=== PATIENT | male | born 1970 | race Caucasian/White ===

== ENCOUNTER 2020-02-21 18:32 | Observation (INO) | payer OTHER, SELFPAY ==
--- NOTE | ~2020-02-21 | CT_ITS ---
EXAMINATION: CT abdomen pelvis wo con DATE: 02/21/2020 20:33 INDICATION: Abdominal pain TECHNIQUE: Computed tomography (CT) of the abdomen and pelvis was performed without intravenous contr ast. The dose-length product (DLP) was 1061.72 mGy-cm. Automated exposure control and iterative recon struction technique were employed. COMPARISON: 06/16/2019 FINDINGS: Minimal dependent atelectasis is present in the lung bases. The heart size is normal. Calci fied coronary artery atherosclerosis is noted. There is bilateral gynecomastia, asymmetric on the lef t. The gallbladder is surgically absent. The liver, spleen, pancreas, and right adrenal gland are nor mal. There is a stable 3.8 cm mass of the left adrenal gland, previously evaluated and most consisten t with an adenoma. There is a 5 mm nonobstructing stone of the left kidney. No pathologically enlarge d abdominal or pelvic lymph nodes are identified. There is calcified atherosclerosis of the aorta and many of the other arteries. There is no free intraperitoneal gas or evidence of bowel obstruction. T here is moderate lumbar spondylosis. IMPRESSION: 1. No CT correlate for the patient's symptoms. Reviewed, dictated and finalized at location A.
--- NOTE | ~2020-02-21 | XR_ITS ---
EXAMINATION: XR chest 2V DATE: 02/23/2020 08:24 INDICATION: Pleuritic chest pain. Elevated d-dimer. TECHNIQUE: frontal and lateral views of the chest were obtained. COMPARISON: Chest radiograph dated 06/16/2019 FINDINGS: The lungs remain clear with no focal airspace opacities, pulmonary edema, pleural effusion or pneumot horax. The cardiomediastinal silhouette is normal. There are bridging osteophytes at multiple levels in the spine, consistent with diffuse idiopathic skeletal hyperostosis (DISH). IMPRESSION: 1. No acute cardiopulmonary disease. Reviewed, dictated and finalized at location A.
--- NOTE | ~2020-02-21 | NM_ITS ---
EXAMINATION: NM pulmonary perfusion EXAM DATE: 02/23/2020 13:48 INDICATION: Elevated d-dimer and pleuritic chest pain. TECHNIQUE: A perfusion lung scan was performed following injected with 5.5 mCi technetium 99m MAA and reimaged. Correlation is made to chest x-ray same date. FINDINGS: Minimally heterogeneous perfusion without segmental defects. Ventilation scan was not perf ormed. IMPRESSION: Low probability pulmonary embolism. Reviewed, dictated and finalized at location B.
[2020-02-21 18:39] VITALS: BP 96/63; PULSE 116; RESP 16; TEMP 36.8; O2SAT 100
--- NOTE | 2020-02-21 19:11 | ED.NAVMDI ---
HPI - Nausea/Vomiting/Diarrhea General Chief complaint: Nausea/Vomiting/Diarrhea Stated complaint: nausea/vomiting Time Seen by Provider: 02/21/20 18:57 Source: RN notes reviewed History of Present Illness HPI Narrative: She presents emergency department from [facility] via EMS for nausea vomiting. Patient states that symptoms began yesterday. States has had numerous episodes of emesis. He states associated diffuse abdominal pain described as cramping. Patient denies any fevers or chills chest pain shortness of breath cough or any other symptoms. States he is taken no previous medication for the symptoms Related Data Allergies Allergy/AdvReac Type Severity Reaction Status Date / Time ketorolac Allergy Intermediate red and Verified 02/21/20 18:41 itches Contrast Media Allergy Unknown Unknown Uncoded 02/21/20 18:41 Review of Systems Review of Systems: Narrative: Gen.: Denies fevers or chills ENT: Denies congestion Respiratory: Denies shortness of breath or cough CV: Denies chest pain or palpitations GI: See HPI denies burning, urgency, frequency or hematuria Musculoskeletal: Denies back pain or muscle pain Neuro: Denies numbness, tingling, weakness or focal weakness Skin: Denies rash Except as documented, all other systems reviewed and negative PMFSH Past Medical History Medical History CVA (cerebral vascular accident) Hypertension Myocardial infarction Pneumonia Surgical History Surgical History (Updated 02/21/20 @ 18:58 by RIZWANA Goddard) History of appendectomy Hx of cholecystectomy Status post craniectomy 2018 Social History Social History (Updated 02/21/20 @ 19:12 by Edilberto Haro DO) Smoking status: Never smoker Gender identity (if verbalized by the patient): Male Exam Narrative: Exam Narrative: APPEARANCE: No acute distress, nontoxic, resting in bed HEENT: Normocephalic, atraumatic, OMM RESPIRATORY: No respiratory distress, clear to auscultation bilaterally with no rhonchi wheezing or rales CARDIOVASCULAR: RRR s murmur ABDOMINAL: Soft, nondistended, diffusely tender to palpation, no rebound or guarding MUSCULOSKELETAl: Moves all extremities. No clubbing, cyanosis or edema. Left leg AKA NEURO: Awake and alert. Following commands, speech normal SKIN:: Warm, dry. Normal Color PSYCHIATRIC: Normal affect/mood Course Course Emergency Course: Patient refusing to urinate in the emergency department. Discussed with patient who does know that he needs to give a urine sample. Patient continues have nausea vomiting in the ED. Discussed with Dr. Mcmahan presentation work-up. Agrees with admission Discussed with patient and family results of workup and diagnosis. Discussed need for admission. Patient and family understand and agree to current treatment plan Patient is refusing to allow a straight cath urine. Had extensive conversation with the patient who is awake and alert x3. He states he does not wish to have a catheter we discussed numerous occasions his distended bladder. After numerous discussions he did allow a single straight cath urine Vital Signs Vital signs: Vital Signs Temperature 98.2 F 02/21/20 18:39 Pulse Rate 116 H 02/21/20 18:39 Respiratory Rate 16 02/21/20 18:39 Blood Pressure 96/63 L 02/21/20 18:39 Pulse Oximetry 100 02/21/20 18:39 Temperature 97.3 F L 02/22/20 02:20 Pulse Rate 110 H 02/22/20 02:20 Respiratory Rate 18 02/22/20 02:20 Blood Pressure 99/60 L 02/22/20 02:20 Pulse Oximetry 100 02/22/20 02:20 MDM - Nausea/Vomiting/Diarrhea Lab Data Result diagrams: 02/21/20 19:11 02/21/20 19:11 Labs: Lab Results 02/21/20 02/21/20 02/21/20 Range/Units 19:11 19:11 20:05 WBC 12.9 H (4.5-10.0) K/mm3 RBC 4.31 L (4.6-6.20) M/mm3 Hgb 13.0 L (14.0-18.0) g/dL Hct 39.1 L (42.0-52.0) % MCV 90.7 (80-100) fl MCH 30.2 (26-34
[2020-02-21 19:17] LABS: Basophils Percent Auto 0.2 % (0.2-1.2); Eosinophils Percent Auto 0.1 % (0-4.4); Hematocrit 39.1 % (42.0-52.0); Immature Granulocyte Absolute 0.04 K/mm3 (0.00-0.031); Immature Granulocyte Percent A 0.3 % (0-0.5); Lymphocytes Absolute Auto 1.41 K/mm3 (0.9-3.2); Lymphocytes Percent Auto 10.9 % (18.3-44.2); Mean Corpuscular HGB Conc 33.2 g/dl (32-36); Mean Corpuscular Hemoglobin 30.2 pg (26-34); Mean Corpuscular Volume 90.7 fl (80-100); Mean Platelet Volume 11.4 fl (7.4-10.4); Monocytes Absolute Auto 1.1 K/mm3 (0.1-0.6); Monocytes Percent Auto 8.1 % (2.6-8.5); Neutrophils Absolute Auto 10.4 K/mm3 (1.3-6.7); Neutrophils Percent Auto 80.4 % (45.5-73.1); Platelet Count Result 287 k/mm3 (150-375); Red Blood Count 4.31 M/mm3 (4.6-6.20); Red Cell Distribution Width 13.3 % (11.5-14.5); White Blood Count 12.9 K/mm3 (4.5-10.0)
[2020-02-21 19:29] LABS: Alanine Aminotransferase 17 U/L (4-50); Albumin Level 4.5 g/dL (3.5-5.1); Alkaline Phosphatase 162 U/L (38-126); Aspartate Amino Transferase 17 U/L (17-59); Bilirubin,Total 1.5 mg/dL (0.2-1.3); Blood Urea Nitrogen 40 mg/dL (9-20); Calcium 9.3 mg/dL (8.4-10.2); Carbon Dioxide > 40 mmol/L (22-30); Chloride 93 mmol/L (98-107); Estimated Glomerular Filt Rate > 60; Glucose 194 mg/dL (75-110); Lipase 22 U/L (23-300); Potassium 3.4 mmol/L (3.4-5.0); Sodium 139 mmol/L (137-145)
[2020-02-21 20:18] VITALS: BP 104/67; PULSE 112; RESP 22; O2SAT 100
[2020-02-21] MEDS: SODIUM CHLORIDE 0.9% IV 1,000 ML 999 ML IV CONT ×2 (20:20→22:45)
[2020-02-21] MEDS: ONDANSETRON INJ 4 MG/2 ML VIAL IV PUSH (20:20)
[2020-02-21 20:24] LABS: Lactic Acid Reflex 1.2 mmol/L (0.7-2.1)
--- NOTE | 2020-02-21 21:58 | PC.NURSE ---
Pt states his pain hasn't gotten any better. Pt asked for heroin , made aware.
[2020-02-21 22:45] VITALS: BP 94/69; PULSE 79
--- NOTE | 2020-02-21 22:46 | PC.NURSE ---
Pt refused to stand for ortho b/p, Pt refused to allow straight cath. Pt states he will pee soon as he can. made aware.
[2020-02-21 22:51] VITALS: BP 101/78; PULSE 108
[2020-02-21 23:00] VITALS: BP 110/73; PULSE 103; O2SAT 100
[2020-02-22 00:55] VITALS: BP 151/90
[2020-02-22 01:36] LABS: Add Urine Microscopic? YES; Appearance Urine Clear (Clear); Bacteria Urine Trace /hpf; Bilirubin Urine Negative (Negative); Blood Urine Negative (Negative); Color Urine Yellow (Yellow); Glucose Urine UA Negative (Negative); Ketones Urine Trace mg/dL (Negative); Leukocyte Esterase Ur 3+ LEU/UL (Negative); Mucus Urine Rare /lpf; Nitrate Urine Negative (Negative); Protein Urine 1+ mg/dL (Negative); Specific Grav Ur 1.024 (1.001-1.035); Squamous Epithelial Cell Urine Many /hpf (Few); WBC Urine 21-30 /hpf
[2020-02-22 02:00] VITALS: BP 151/90
[2020-02-22 02:20] VITALS: BP 99/60; PULSE 110; RESP 18; TEMP 36.3; O2SAT 100; BMI 21.9
--- NOTE | 2020-02-22 02:30 | ADMGEN ---
This patient, Kaushik Vogel, was admitted to 3 [facility] Surg Room 307-01. Patient/family oriented to hospital policies and general routines including ID bracelet, bed and alarms, visiting hours, pain management, procedures, bathroom and other care routines, personal items, smoking policy, room service/diet, and visiting hours. Valuables list has been completed. Information on how to activate the Rapid Response Team has been discussed. Patient/Family are encouraged to report perceived risks to care and to ask questions if they do not understand what they are told or what they should do.
[2020-02-22] MEDS: SODIUM CHLORIDE 0.9% IV 1,000 ML 125 ML IV CONT (03:30)
[2020-02-22] MEDS: ONDANSETRON INJ 4 MG/2 ML VIAL IV PUSH ×4 (03:44→21:13)
--- NOTE | 2020-02-22 05:44 | PM.IMHP ---
H&P: HPI History of Present Illness Chief complaint: nausea/vomiting Narrative: Date and time of patient contact: 02/22/2020 at 4:55 a.m. Source of information: Past medical records and ER records. The patient is a poor historian. Kaushik Vogel is a 49 year old male with a past medical history of insulin-dependent diabetes mellitus, hypertension, and prior CVA complicated by cerebral edema requiring craniotomy and residual left-sided hemiparesis who presented to the ER from a [facility] with 1 day of nausea and vomiting. The patient began having nausea and vomiting yesterday. He had numerous episodes of emesis. His nausea vomiting was associated with lower abdominal pain. In the ER the patient had a CT scan which demonstrated no source to explain his symptoms. However, the patient was unable to produce a urine specimen after several hours in the ER and after IV fluid administration. Patient subsequently had a bladder scan performed which demonstrated greater than 500 mL of urine. The patient was adamant that he not receive a straight catheterization or Meza catheter. After multiple discussions regarding the importance of urinalysis the ER physician was able to convince the patient to have a straight cath placed. The patient reported that if they placed a Meza catheter he would purposely pull it out. I told the patient that if he was unable to urinate later in the day he may require Meza catheter placed due to retention. The patient stated he had a catheter placed in the ER and they took it out and it was not his fault that they did not leave it in. Patient had denied having any dysuria but is having tenderness to palpation in the suprapubic region. While I was in the patient's room he asked every 1-2 minutes if he could have something to drink. Nursing staff informed me that the patient had asked for fluids in ice in the ER so much that he was given fluids in eyes and then the patient had multiple episodes of vomiting. The patient continues to argue that he is vomiting because we are not giving him fluids. He does not seem to understand consequences related with his request. Patient has been afebrile since presentation to the ER. However he has been tachycardic with a heart rate in the 110s. The patient yelled at me to not push on his abdomen because he stated he would ?shit all over.? Review of Systems Review of Systems: Narrative: 12 systems were reviewed with pertinent positives and negatives per HPI. Except as documented in the HPI, all other systems were reviewed and are negative. However the patient is extremely poor historian due to his prior brain injury/CVA. [facility] Past Medical History Medical History (Updated 02/22/20 @ 07:37 by Bethanie Mcmahan DO) CVA (cerebral vascular accident) CVA age 48 (2018) resulting in left hemiparesis. His CVA was complicated by cerebral edema recur requiring craniotomy, respiratory failure with tracheostomy and resultant dysphagia with g-tube placement and subsequent removal. History of left above knee amputation Hypertension Insulin dependent diabetes mellitus With a hemoglobin A1c was 7.30 May 2019 Myocardial infarction Poorly documented Pneumonia Seizure disorder as sequela of cerebrovascular accident Surgical History Surgical History (Updated 02/22/20 @ 06:08 by Bethanie Mcmahan DO) Gastrojejunostomy tube status G-tube placed 2017 with subsequent removal in 2019 History of appendectomy Hx of cholecystectomy Status post craniectomy 2018 due to cerebral edema from CVA. Family History Family History Other Acute myocardial infarction Social History Social History (Updated 02/22/20 @ 07:26 by Bethanie Mcmahan DO) Smoking status: Former smoker Additional smoking assessment comments: He started smoking at a young age and stopped 2018. Alcohol intake: former Alcohol use details: The patient used to
[2020-02-22 07:18] VITALS: BP 134/70; PULSE 97; RESP 18; TEMP 36.4; O2SAT 100
[2020-02-22 08:56] LABS: Basophils Percent Auto 0.3 % (0.2-1.2); Eosinophils Percent Auto 0.4 % (0-4.4); Hemoglobin 10.7 g/dL (14.0-18.0); Immature Granulocyte Absolute 0.02 K/mm3 (0.00-0.031); Immature Granulocyte Percent A 0.2 % (0-0.5); Lymphocytes Absolute Auto 1.78 K/mm3 (0.9-3.2); Lymphocytes Percent Auto 19.3 % (18.3-44.2); Mean Corpuscular HGB Conc 33.4 g/dl (32-36); Mean Corpuscular Hemoglobin 30.7 pg (26-34); Mean Platelet Volume 11.3 fl (7.4-10.4); Monocytes Absolute Auto 0.7 K/mm3 (0.1-0.6); Monocytes Percent Auto 7.6 % (2.6-8.5); Neutrophils Absolute Auto 6.7 K/mm3 (1.3-6.7); Neutrophils Percent Auto 72.2 % (45.5-73.1); Platelet Count Result 240 k/mm3 (150-375); Red Blood Count 3.48 M/mm3 (4.6-6.20); Red Cell Distribution Width 13.4 % (11.5-14.5); White Blood Count 9.2 K/mm3 (4.5-10.0)
[2020-02-22] MEDS: PANTOPRAZOLE SODIUM IV 40 MG VIAL IV PUSH ×2 (09:02→21:15)
[2020-02-22 09:07] LABS: Alanine Aminotransferase 13 U/L (4-50); Albumin Level 3.7 g/dL (3.5-5.1); Alkaline Phosphatase 131 U/L (38-126); Aspartate Amino Transferase 16 U/L (17-59); Bilirubin,Total 1.3 mg/dL (0.2-1.3); Blood Urea Nitrogen 37 mg/dL (9-20); Calcium 8.6 mg/dL (8.4-10.2); Carbon Dioxide 33 mmol/L (22-30); Chloride 99 mmol/L (98-107); Estimated CRCL calculation 121 ml/min; Estimated Glomerular Filt Rate > 60; Glucose 167 mg/dL (75-110); Potassium 3.3 mmol/L (3.4-5.0); Sodium 140 mmol/L (137-145)
--- NOTE | 2020-02-22 10:08 | PM.IMPN ---
Progress Note: A&P Assessment and Plan (1) Sepsis: Code(s): A41.9 - Sepsis, unspecified organism Status: Acute Assessment and Plan: Sepsis criteria met on admission with leukocytosis, tachycardia and tachypnea with suspected UTI. Vitals are improved today he is now afebrile, normal blood pressure, non tachycardic, normal oxygenation and respiratory rate. No more leukocytosis at this time. Continue monitoring blood culture and urine culture results. Continue monitoring patient's vitals symptoms. Continue IV antibiotics for possible UTI. (2) Bacteriuria with pyuria: Code(s): R82.71 - Bacteriuria; R82.81 - Pyuria Status: Acute Assessment and Plan: Given the patient's leukocytosis, urinary retention and suprapubic tenderness patient likely has acute UTI. Patient has been started on empiric antibiotic therapy with Rocephin. Blood cultures and urine cultures are pending I started patient on Flomax and will continue monitoring for urinary retention issues. Continue monitoring and treatment with IV antibiotics. (3) Nausea and vomiting: Code(s): R11.2 - Nausea with vomiting, unspecified Status: Acute Assessment and Plan: Likely secondary to urinary tract infection. Will change the patient's diet to advance diet as tolerated starting with clears and advancing to a heart healthy diet. The patient did have an episode of vomiting after eating some orange Jell-O. The nurse gave him and Ensure Clear and he tolerated it well and is requesting a 2nd insure. We will keep him at clears at this time and just monitor his symptoms. Antiemetics as needed. (4) Diabetes mellitus with hyperglycemia: Code(s): E11.65 - Type 2 diabetes mellitus with hyperglycemia Status: Acute Assessment and Plan: I will put his long-acting insulin on hold because he is still having some intermittent vomiting episodes. Serum glucose this morning was 167. Continue monitoring his glucose ACHS. Continue low-dose sliding scale insulin and hypoglycemia protocol. (5) Hypokalemia: Code(s): E87.6 - Hypokalemia Status: Acute Assessment and Plan: Potassium this morning was 3.3 he and he was given IV potassium 40 mEq. Will recheck potassium this afternoon. (6) Anemia: Code(s): D64.9 - Anemia, unspecified Status: Acute Assessment and Plan: Patient has a history of anemia in the past. Prior hospitalization May 2019 his initial hemoglobin was 13.8 and the next day had dropped to 10.8. On arrival his hemoglobin was 13, and repeat this morning was 10.7. It is stable from his prior labs that have been reviewed. He is still getting some IV fluids until is eating and drinking without any issues. Continue monitoring patient's H&H and transfuse if needed. No signs of acute bleeding at this time. (7) CVA (cerebral vascular accident): Code(s): I63.9 - Cerebral infarction, unspecified Status: Acute Assessment and Plan: History of left-sided weakness secondary to old CVA in the past. Chronic. Time Spent With Patient Time with patient: 25 - 35 minutes Subjective Date/time seen: 02/22/20 10:08 Interval history: Date of service 02/22/2020: The patient is a poor historian secondary to prior CVA. He reports some abdominal pain mostly to his epigastric area along with some nausea and vomiting. He also reports chest pain but states this is something that he has had since his heart attack in the past. His chest pain is reproducible to palpation of his substernal chest wall and he reports chest pain whenever he takes a deep breath.
[2020-02-22 12:30] LABS: Glucose Point of Care 160 (65-105)
[2020-02-22] MEDS: INSULIN ASPART (*BKC) 100 UNITS/ML SUB-Q ×2 (12:43→17:17)
[2020-02-22 12:52] LABS: Glucose Point of Care 324 (65-105)
[2020-02-22 13:49] LABS: D Dimer 0.74 ug/mL (<0.48)
[2020-02-22 14:00] VITALS: BP 114/70; PULSE 102; RESP 18; TEMP 36.7; O2SAT 97
[2020-02-22] MEDS: SODIUM CHLORIDE 0.9% IV 1,000 ML 80 ML IV CONT (15:59)
[2020-02-22] MEDS: TAMSULOSIN HCL 0.4 MG CAPSULE PO (16:00)
[2020-02-22 17:16] LABS: Glucose Point of Care 206 (65-105)
[2020-02-22] MEDS: ATORVASTATIN 40 MG TABLET PO (21:15)
[2020-02-22] MEDS: QUEtiapine FUMARATE 100 MG TABLET PO (21:15)
[2020-02-22] MEDS: traMADol HCL 50 MG TABLET PO (21:27)
[2020-02-22 22:00] VITALS: BP 122/50; PULSE 102; RESP 20; TEMP 36.2; O2SAT 100
[2020-02-23 01:31] LABS: Glucose Point of Care 170 (65-105)
[2020-02-23] MEDS: SODIUM CHLORIDE 0.9% IV 1,000 ML 80 ML IV CONT ×3 (03:34→21:18)
[2020-02-23] MEDS: CALCIUM CARBONATE (TUMS) 500 MG (200 MG ELEMENTAL) 400 MG PO ×2 (03:51→11:58)
--- NOTE | 2020-02-23 05:12 | PC.NURSE ---
1912 02/22/20 pt has not urinated so far this shift, bladder scan showed 149ml of urine, will continue to monitor.
--- NOTE | 2020-02-23 05:17 | PC.NURSE ---
pt still not able to void, contacted dr johnson received orders to place ludwig. #16 fr indwelling ludwig placed got immediate cloudy duglas return. tolerated procedure well. pt had total of 600 ml duglas urnine
[2020-02-23] MEDS: LIDOCAINE HCL 2% GEL UROJET 10 ML PKG MUCOUS MEM (05:21)
[2020-02-23 06:00] VITALS: BP 101/57; PULSE 96; RESP 18; TEMP 36.3; O2SAT 97
[2020-02-23 06:15] LABS: Basophils Percent Auto 0.5 % (0.2-1.2); Eosinophils Absolute Auto 0.2 K/mm3 (0-0.3); Eosinophils Percent Auto 3.2 % (0-4.4); Hemoglobin 9.8 g/dL (14.0-18.0); Immature Granulocyte Absolute 0.01 K/mm3 (0.00-0.031); Immature Granulocyte Percent A 0.1 % (0-0.5); Lymphocytes Absolute Auto 2.01 K/mm3 (0.9-3.2); Lymphocytes Percent Auto 27.5 % (18.3-44.2); Mean Corpuscular HGB Conc 32.7 g/dl (32-36); Mean Corpuscular Hemoglobin 30.3 pg (26-34); Mean Corpuscular Volume 92.9 fl (80-100); Mean Platelet Volume 11.3 fl (7.4-10.4); Monocytes Absolute Auto 0.6 K/mm3 (0.1-0.6); Monocytes Percent Auto 7.9 % (2.6-8.5); Neutrophils Absolute Auto 4.4 K/mm3 (1.3-6.7); Neutrophils Percent Auto 60.8 % (45.5-73.1); Platelet Count Result 190 k/mm3 (150-375); Red Blood Count 3.23 M/mm3 (4.6-6.20); Red Cell Distribution Width 13.2 % (11.5-14.5); White Blood Count 7.3 K/mm3 (4.5-10.0)
[2020-02-23 06:25] LABS: Alanine Aminotransferase 11 U/L (4-50); Albumin Level 3.2 g/dL (3.5-5.1); Alkaline Phosphatase 107 U/L (38-126); Aspartate Amino Transferase 14 U/L (17-59); Bilirubin,Total 1.2 mg/dL (0.2-1.3); Blood Urea Nitrogen 28 mg/dL (9-20); Calcium 8.4 mg/dL (8.4-10.2); Carbon Dioxide 34 mmol/L (22-30); Chloride 104 mmol/L (98-107); Estimated CRCL calculation 121 ml/min; Estimated Glomerular Filt Rate > 60; Glucose 163 mg/dL (75-110); Potassium 3.2 mmol/L (3.4-5.0); Sodium 140 mmol/L (137-145)
[2020-02-23 06:42] LABS: Add Urine Microscopic? YES; Appearance Urine Turbid (Clear); Bilirubin Urine Negative (Negative); Blood Urine 1+ (Negative); Color Urine Yellow (Yellow); Glucose Urine UA Negative (Negative); Ketones Urine Negative (Negative); Leukocyte Esterase Ur 2+ LEU/UL (Negative); Mucus Urine Few /lpf; Nitrate Urine Negative (Negative); Protein Urine 2+ mg/dL (Negative); RBC Urine >75 /hpf (0-2); Specific Grav Ur 1.027 (1.001-1.035); WBC Urine >75 /hpf
[2020-02-23 09:20] LABS: Glucose Point of Care 140 (65-105)
--- NOTE | 2020-02-23 10:20 | PM.IMPN ---
Progress Note: A&P Assessment and Plan (1) Sepsis: Code(s): A41.9 - Sepsis, unspecified organism Status: Acute Assessment and Plan: SIRS criteria were met on admission with leukocytosis, tachycardia and tachypnea. UTI is the suspected source. Urine culture reveals yeast. Discontinue IV ceftriaxone. Blood cultures are pending. Await final cultures and continue to monitor. (2) Bacteriuria with pyuria: Code(s): R82.71 - Bacteriuria; R82.81 - Pyuria Status: Acute Assessment and Plan: UA was suspicious for UTI. He had leukocytosis, urinary retention, nausea, vomiting, and suprapubic tenderness. Urine culture reveals 1,000-10,000 CFU/mL of yeast. Plan to consult urology for further recommendations as his urine appears turbid. This may be due to retention. A ludwig was placed overnight per the oncology account specialist due to urinary retention with 600cc return. Flomax was initiated 02/22/20. He is on empiric rocephin which will be discontinued due to final culture results with evidence of yeast. Will await further urology recommendations regarding yeast and retention. Blood cultures are pending. (3) Nausea and vomiting: Code(s): R11.2 - Nausea with vomiting, unspecified Status: Acute Assessment and Plan: This may be secondary to his UTI. CT abdomen pelvis revealed no evidence of acute intra-abdominal findings. He reports that he is tolerating ensure well. Continue to advance diet as tolerated. Continue zofran PRN. Continue to monitor. (4) Diabetes mellitus with hyperglycemia: Code(s): E11.65 - Type 2 diabetes mellitus with hyperglycemia Status: Acute Assessment and Plan: Blood sugars were reviewed and were elevated yesterday above target. FBS today was 163. Lantus was held yesterday since he was not tolerating CLD. Blood sugars were elevated so I will resume lantus at a lower dose. Plan to continue ACHS glucose monitoring, hypoglycemia protocol, and low-dose sliding scale insulin. Continue to monitor. (5) Hypokalemia: Code(s): E87.6 - Hypokalemia Status: Acute Assessment and Plan: Potassium was 3.2 today. He received IV potassium 40mEq yesterday due to hypokalemia. Supsect that this was due to GI loss from vomiting which has resolved. Plan to give 40mEq PO potassium today. Continue to monitor potassium. (6) Anemia: Code(s): D64.9 - Anemia, unspecified Status: Acute Assessment and Plan: The patient has a prior hx of anemia. Hb is 9.8 and Hct 30.0 today. (Hb 13.0 and Hct 39.1 at presentation). I suspect that he was dehydrated at presentation and he likely has a dilutional component following IV rehydration. Plan to continue monitoring patient's H&H and transfuse PRN to maintain Hb >7. He has no evidence of bleeding. Will check iron studies, folate, and B12. Continue to monitor. (7) CVA (cerebral vascular accident): Code(s): I63.9 - Cerebral infarction, unspecified Status: Chronic Assessment and Plan: Chronic. He has chronic left hemiparesis. Continue atorvastatin. He is not on ASA prior to admission. Will defer to PCP. Subjective Date/time seen: 02/23/20 10:20 Interval history: Assuming care. Mr. Vogel is a 49 y.o. male with hx of IDDM and prior CVA complicated by cerebral edema requiring craniotomy with residual left hemiparesis who is seen in follow-up for a UTI. He is a poor historian due to his hx of CVA and is alert and oriented to person and place. He reports that his nausea and vomiting have resolved and he is tolerating ensure well. He reports a soft bowel movement yesterday. He has a ludwig in place with no issues. He reports abdominal discomfort which he cannot localize or describe further. He denies chest pain and dyspnea. Review of Systems Review of Systems: All systems reviewed & are unremarkable except as noted in HPI and below Exam Narrative: Exam Narrative: General:
[2020-02-23] MEDS: ONDANSETRON INJ 4 MG/2 ML VIAL IV PUSH ×2 (10:45→21:12)
--- NOTE | 2020-02-23 11:08 | ECG_ITS ---
Measurements Intervals [place] Rate: 87 P: 77 WI: 148 QRS: 8 QRSD: 97 T: 62 QT: 375 QTc: 451 Interpretive Statements SINUS RHYTHM LOW QRS VOLTAGE- DIFFUSE LEADS BORDERLINE R WAVE PROGRESSION, ANTERIOR LEADS MINIMAL Q WAVES- ANTEROLATERAL LEADS INFERIOR INFARCT, AGE INDETERMINATE BASELINE ARTIFACT- III, AVL, V1-V2 ABNORMAL ECG Electronically Signed On 02-23-2020 11:22:48 CDT by Morris Borrero D.O.
[2020-02-23] MEDS: POTASSIUM CHLORIDE 20 MEQ TABLET 40 MEQ PO (11:58)
[2020-02-23] MEDS: TAMSULOSIN HCL 0.4 MG CAPSULE PO (11:58)
[2020-02-23] MEDS: ESCITALOPRAM OXALATE 5 MG TABLET PO (11:58)
[2020-02-23 12:03] LABS: Glucose Point of Care 143 (65-105)
[2020-02-23] MEDS: PANTOPRAZOLE SODIUM IV 40 MG VIAL IV PUSH ×2 (12:06→21:14)
[2020-02-23 12:08] VITALS: BMI 21.9
--- NOTE | 2020-02-23 12:38 | WPDURCON ---
Assessment and Plan Assessment and plan (1) Acute UTI: Code(s): N39.0 - Urinary tract infection, site not specified Status: Acute Assessment and Plan: Recommend Diflucan 100mg QD x 7 days to treat UTI. (2) Urinary retention: Code(s): R33.9 - Retention of urine, unspecified Status: Acute Assessment and Plan: Patient and caregiver understand that infections, kidney failure and are possibilities of untreated urinary retention after removing the ludwig and both agree that it can be removed. Remove ludwig. Presley's retention is likely a result of his CVA, if he hadn't refused his ludwig we would recommend following up monthly catheter changes and likely an SP tube insertion at some point. No further recommendations at this time. Urology Consult Note HPI Date Seen: 02/23/20 Requesting Physician: Estrellita Gold PA-C Primary Care Provider: Antwan Cox Jr., MD Consult Narrative Narrative: Kaushik Vogel is a 49 year old male who was admitted from the ER on 02/21/2020 for abdominal pain, nausea, vomiting and urinary retention with UTI. He lives at [facility]. His CT scan was negative for urologic findings, urine culture grew yeast but he has not been stopped on Ceftriaxone. He was found to have >500ml in his bladder and was difficult to convince that he needed a ludwig in place. He has a history of DM, heart disease and CVA previously two years ago. WBC is normal at 7.3, Creatinine is 0.70. Patient is a poor medical lab specialist and gives one word answers. He does state that he suffers from frequency, hesitancy and urgency normally. I spoke with his POA today over the phone and she says he urinates on his own, but gets sick like this every six months with infection. The patient is refusing to keep his ludwig in, he understands that without his ludwig likely kidney and dialysis are inevitable, possibly even . His POA also understands the repercussion of removing the ludwig and that , infections or kidney failure will ensue. She states that she would like for him to keep it in but ultimately is leaving the decision up to him and states that if he doesn't want it, it can come out, she agrees and understands. He refuses an abdominal exam today. Review of Systems Respiratory: Respiratory: Reports no additional respiratory complaints Genitourinary: Genitourinary: Denies hematuria, Reports urinary frequency, Reports urinary hesitancy, Denies urinary incontinence and Reports urinary urgency PMF Past Medical History Medical History CVA (cerebral vascular accident) CVA age 48 (2018) resulting in left hemiparesis. His CVA was complicated by cerebral edema recur requiring craniotomy, respiratory failure with tracheostomy and resultant dysphagia with g-tube placement and subsequent removal. History of left above knee amputation Hypertension Insulin dependent diabetes mellitus With a hemoglobin A1c was 7.30 May 2019 Myocardial infarction Poorly documented Pneumonia Seizure disorder as sequela of cerebrovascular accident Surgical History Surgical History Gastrojejunostomy tube status G-tube placed 2017 with subsequent removal in 2018 History of appendectomy Hx of cholecystectomy Status post craniectomy 2018 due to cerebral edema from CVA. Family History Family History Other Acute myocardial infarction Social History Social History Smoking status: Former smoker Additional smoking assessment comments: He started smoking at a young age and stopped 2018. Alcohol intake: former Alcohol use details: The patient used to drink alcohol in moderation. Substance use: former Substance use type: marijuana Other substance usage details: has no
[2020-02-23 14:00] VITALS: BP 128/64; PULSE 74; RESP 20; TEMP 36.8; O2SAT 100
[2020-02-23] MEDS: traMADol HCL 50 MG TABLET PO (17:39)
[2020-02-23 18:01] LABS: Glucose Point of Care 124 (65-105)
--- NOTE | 2020-02-23 20:08 | PC.NURSE ---
Spoke with Karlee today who stated pt was not wanting his ludwig any longer. She stated she had called the significant other to confirm. Her report states that she would like him to keep the ludwig and initiate monthly changes, with hopes of a s/p placement. When I went to pull the pt's ludwig, I asked him, Are you sure you want me to pull the ludwig? He replied, No, i'm keeping it. I said, So you want the ludwig to stay in? He said, Yes. I said, I'm going to leave it in, right? He again replied, Yes. Two other times in the shift, I asked him if he wanted to keep the ludwig and he reiterated he did. I called and left a message on Kralee's phone to inform her of his change.
[2020-02-23] MEDS: ACETAMINOPHEN 500 MG TABLET PO (21:15)
[2020-02-23] MEDS: ATORVASTATIN 40 MG TABLET PO (21:15)
[2020-02-23] MEDS: QUEtiapine FUMARATE 100 MG TABLET PO (21:15)
[2020-02-23 22:00] VITALS: BP 118/66; PULSE 76; RESP 16; TEMP 36.6; O2SAT 99
[2020-02-24 02:30] LABS: Glucose Point of Care 138 (65-105)
[2020-02-24 06:00] VITALS: BP 110/65; PULSE 75; RESP 20; TEMP 36.8; O2SAT 99
[2020-02-24] MEDS: SODIUM CHLORIDE 0.9% IV 1,000 ML 80 ML IV CONT ×2 (06:02→21:45)
[2020-02-24 06:12] LABS: Basophils Percent Auto 0.6 % (0.2-1.2); Eosinophils Absolute Auto 0.2 K/mm3 (0-0.3); Eosinophils Percent Auto 3.9 % (0-4.4); Hematocrit 30.6 % (42.0-52.0); Hemoglobin 9.8 g/dL (14.0-18.0); Immature Granulocyte Absolute 0.01 K/mm3 (0.00-0.031); Immature Granulocyte Percent A 0.2 % (0-0.5); Lymphocytes Absolute Auto 2.06 K/mm3 (0.9-3.2); Lymphocytes Percent Auto 42.3 % (18.3-44.2); Mean Corpuscular Hemoglobin 30.6 pg (26-34); Mean Corpuscular Volume 95.6 fl (80-100); Mean Platelet Volume 11.5 fl (7.4-10.4); Monocytes Absolute Auto 0.4 K/mm3 (0.1-0.6); Monocytes Percent Auto 8.4 % (2.6-8.5); Neutrophils Absolute Auto 2.2 K/mm3 (1.3-6.7); Neutrophils Percent Auto 44.6 % (45.5-73.1); Platelet Count Result 166 k/mm3 (150-375); Red Cell Distribution Width 13.1 % (11.5-14.5); White Blood Count 4.9 K/mm3 (4.5-10.0)
[2020-02-24 06:21] LABS: Blood Urea Nitrogen 23 mg/dL (9-20); Calcium 7.6 mg/dL (8.4-10.2); Carbon Dioxide 28 mmol/L (22-30); Chloride 110 mmol/L (98-107); Estimated CRCL calculation 139 ml/min; Estimated Glomerular Filt Rate > 60; Glucose 90 mg/dL (75-110); Potassium 3.6 mmol/L (3.4-5.0); Sodium 142 mmol/L (137-145)
[2020-02-24 06:28] LABS: Transferrin 135 mg/dL (206-381)
[2020-02-24 07:02] LABS: Iron 53 ug/dL (49-181)
[2020-02-24 07:14] LABS: Percent Iron Saturation 25 % (20-50)
[2020-02-24 07:27] LABS: Folic Acid 9.4 ng/mL (2.76->20)
[2020-02-24 08:28] LABS: Glucose Point of Care 98 (65-105)
[2020-02-24] MEDS: PANTOPRAZOLE SODIUM IV 40 MG VIAL IV PUSH ×2 (08:32→21:44)
[2020-02-24] MEDS: ESCITALOPRAM OXALATE 5 MG TABLET PO (08:32)
[2020-02-24] MEDS: TAMSULOSIN HCL 0.4 MG CAPSULE PO (08:32)
--- NOTE | 2020-02-24 10:16 | PM.IMPN ---
Progress Note: A&P Assessment and Plan (1) Sepsis: Qualifiers: Sepsis type: Anay Sepsis acute organ dysfunction status: without acute organ dysfunction Qualified Code(s): B37.7 - Candidal sepsis; R65.20 - Severe sepsis without septic shock Code(s): A41.9 - Sepsis, unspecified organism Status: Acute Assessment and Plan: SIRS criteria were met on admission with leukocytosis, tachycardia and tachypnea. UTI is the suspected source. Urine culture reveals yeast. Diflucan was initated and ceftriaxone was discontinued. Blood cultures reveal NGTD. He is improving clinically and is hemodynamically stable. Await final cultures and continue to monitor. (2) Yeast UTI: Code(s): B37.49 - Other urogenital candidiasis Status: Acute Assessment and Plan: UA was suspicious for UTI. He had leukocytosis, urinary retention, nausea, vomiting, and suprapubic tenderness. Urine culture reveals 1,000-10,000 CFU/mL of yeast. Urology was consulted for further recommendations. IV ceftriaxone was discontinued 02/23/20 and diflucan 100mg was initiated 02/23/20. Blood cultures reveal NGTD. Hopeful discharge tomorrow on PO diflucan tomorrow with urology follow-up outpatient. (3) Urinary retention: Code(s): R33.9 - Retention of urine, unspecified Status: Acute Assessment and Plan: He had urinary retention with the inability to void so ludwig was placed with 600cc residual. Flomax was initiated 02/22/20. Urology was consulted and recommends long-term ludwig placement with monthly catheter changes. The patient was initially refusing long-term ludwig but he is now agreeable to this and this was confirmed with his girlfriend and VAIBHAV Magallanes at the bedside. He will need follow-up with urology outpatient for management. (4) Nausea and vomiting: Qualifiers: Vomiting type: unspecified Vomiting Intractability: non-intractable Qualified Code(s): R11.2 - Nausea with vomiting, unspecified Code(s): R11.2 - Nausea with vomiting, unspecified Status: Acute Assessment and Plan: Resolved. This was likely secondary to his UTI. CT abdomen pelvis revealed no evidence of acute intra-abdominal findings. Continue zofran PRN. Plan to advance diet today as tolerated. 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 Lantus was held initially since he was not tolerating CLD. Lantus was resumed at a low dose of 10 units. He will resume a consistent carb diet today and will likely need lantus increased tomorrow if he tolerates this well. Plan to continue ACHS glucose monitoring, hypoglycemia protocol, and low-dose sliding scale insulin. Continue to monitor. (6) Hypokalemia: Code(s): E87.6 - Hypokalemia Status: Resolved Assessment and Plan: Resolved. Potassium is 3.6 today. I suspect that this was due to GI loss from vomiting which has resolved. Will continue to monitor. (7) Anemia: Qualifiers: Anemia type: unspecified type Qualified Code(s): D64.9 - Anemia, unspecified Code(s): D64.9 - Anemia, unspecified Status: Acute Assessment and Plan: The patient has a prior hx of anemia. Hb is 9.8 and Hct 30.6 today. (Hb 13.0 and Hct 39.1 at presentation). I suspect that he was dehydrated at presentation and he likely has a dilutional component following IV rehydration. Iron studies were consistent with anemia of chronic disease and vitamin B12 and folate levels are sufficient. Plan to continue monitoring patient's H&H and tr
[2020-02-24 14:00] VITALS: BP 124/65; PULSE 79; RESP 18; TEMP 36.7; O2SAT 100
[2020-02-24 17:15] LABS: Glucose Point of Care 114 (65-105)
[2020-02-24 20:00] VITALS: BP 133/65; PULSE 77; RESP 20; TEMP 36.9; O2SAT 97
[2020-02-24 21:24] LABS: Glucose Point of Care 83 (65-105)
[2020-02-24] MEDS: QUEtiapine FUMARATE 100 MG TABLET PO (21:44)
[2020-02-24] MEDS: traMADol HCL 50 MG TABLET PO (21:44)
[2020-02-24] MEDS: ATORVASTATIN 40 MG TABLET PO (21:44)
[2020-02-25] MEDS: SODIUM CHLORIDE 0.9% IV 1,000 ML 80 ML IV CONT (05:13)
[2020-02-25 06:00] VITALS: BP 109/61; PULSE 59; RESP 16; TEMP 36.8; O2SAT 99
[2020-02-25 06:22] LABS: Hemoglobin 8.9 g/dL (14.0-18.0); Mean Corpuscular HGB Conc 30.7 g/dl (32-36); Mean Corpuscular Hemoglobin 30.4 pg (26-34); Platelet Count Result 140 k/mm3 (150-375); Red Blood Count 2.93 M/mm3 (4.6-6.20); Red Cell Distribution Width 12.8 % (11.5-14.5); White Blood Count 5.7 K/mm3 (4.5-10.0)
[2020-02-25 06:38] LABS: Blood Urea Nitrogen 18 mg/dL (9-20); Calcium 7.9 mg/dL (8.4-10.2); Carbon Dioxide 24 mmol/L (22-30); Chloride 110 mmol/L (98-107); Estimated CRCL calculation 164 ml/min; Estimated Glomerular Filt Rate > 60; Glucose 152 mg/dL (75-110); Potassium 3.6 mmol/L (3.4-5.0); Sodium 137 mmol/L (137-145)
[2020-02-25 08:27] LABS: Glucose Point of Care 112 (65-105)
[2020-02-25 08:27] LABS: Glucose Point of Care 139 (65-105)
[2020-02-25] MEDS: TAMSULOSIN HCL 0.4 MG CAPSULE PO (08:47)
[2020-02-25] MEDS: ESCITALOPRAM OXALATE 5 MG TABLET PO (08:47)
[2020-02-25] MEDS: PANTOPRAZOLE SODIUM IV 40 MG VIAL IV PUSH ×2 (08:47→21:13)
--- NOTE | 2020-02-25 10:14 | PM.DS ---
DS: Admitting Diagnosis Admitting Diagnosis Admitting Diagnosis: Bacteriuria DS: Discharge Diagnosis Discharge Diagnosis (1) Sepsis: Qualifiers: Sepsis acute organ dysfunction status: without acute organ dysfunction Sepsis type: Anay Qualified Code(s): B37.7 - Candidal sepsis; R65.20 - Severe sepsis without septic shock Code(s): A41.9 - Sepsis, unspecified organism Status: Resolved (2) Yeast UTI: Code(s): B37.49 - Other urogenital candidiasis Status: Acute (3) Urinary retention: Code(s): R33.9 - Retention of urine, unspecified Status: Resolved (4) Nausea and vomiting: Qualifiers: Vomiting Intractability: non-intractable Vomiting type: unspecified Qualified Code(s): R11.2 - Nausea with vomiting, unspecified Code(s): R11.2 - Nausea with vomiting, unspecified Status: Resolved (5) Diabetes mellitus with hyperglycemia: Qualifiers: Diabetes mellitus correction insulin use: with long term care social worker use Diabetes mellitus type: type 2 Qualified Code(s): E11.65 - Type 2 diabetes mellitus with hyperglycemia; Z79.4 - [facility] (current) use of insulin Code(s): E11.65 - Type 2 diabetes mellitus with hyperglycemia Status: Acute (6) Hypokalemia: Code(s): E87.6 - Hypokalemia Status: Resolved (7) Anemia: Qualifiers: Anemia type: unspecified type Qualified Code(s): D64.9 - Anemia, unspecified Code(s): D64.9 - Anemia, unspecified Status: Acute (8) CVA (cerebral vascular accident): Code(s): I63.9 - Cerebral infarction, unspecified Status: Chronic DS: Summary Hospital Course Reason for hospitalization: Nausea and vomiting Hospital Course: Mr. Vogel is a 49 y.o. 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 His sx were associated with lower abdominal pain/suprapubic tenderness. He was unable to provide a urine specimen after several hours in the ED and IV fluids. Bladder scan was performed which demonstrated 500cc of urine. He initially refused ludwig but was eventually agreeable. Initial workup in the ED revealed WBC 12,900, Hb 13, Hct 39.1, platelets 287, chloride 93, CO2 >40, BUN 40, Cr 0.9, glucose 194. UA was suspicious for UTI. CT abd/pelvis was unremarkable for an acute intra-abdominal process. He had a 5mm nonobstructing stone of the left kidney with no enlarged abdominal or pelvic adenopathy. CXR was unremarkable. He was admitted to the hospitalist service SIRS criteria were met on admission with leukocytosis, tachycardia and tachypnea with UTI suspected as the source. Urine culture reveals 1,000-10,000 CFU/mL of yeast. Diflucan was initiated and ceftriaxone was discontinued. Urology was consulted for further recommendations regarding his urinary retention and yeast UTI. Urology recommended he continue with a chronic indwelling ludwig with monthly catheter changes at the half-way. Per urology, he will need outpatient follow-up with Dr. Nuno to discuss suprapubic catheter placement in the future. The patient was initially refusing long-term ludwig but was subsequently agreeable and I confirmed this with his girlfriend and VAIBHAV Magallanes. Blood cultures revealed NGTD. He continued to improve once diflucan was initiated and his N/V resolved. He was discharged in stable condition on the afternoon of 02/25/20 on PO diflucan. Status at Discharge Functional status at discharge: wheelchair bound Overall status at discharge: patient is back to baseline Time Spent with Patient Time attestation: Total time spent providing and/or coordinating discharge services: 40 minutes Exam Narrative: Exam Narrative: Vitals at presentation: Temp Pulse Resp
[2020-02-25 12:24] LABS: Glucose Point of Care 147 (65-105)
[2020-02-25 14:00] VITALS: BP 122/74; PULSE 82; RESP 18; TEMP 36.3; O2SAT 100
[2020-02-25 19:18] LABS: SARS-CoV-2 RNA PCR Negative
[2020-02-25 20:08] LABS: Glucose Point of Care 176 (65-105)
[2020-02-25] MEDS: ATORVASTATIN 40 MG TABLET PO (21:13)
[2020-02-25] MEDS: QUEtiapine FUMARATE 100 MG TABLET PO (21:13)
[2020-02-25] MEDS: traMADol HCL 50 MG TABLET PO (21:18)
[2020-02-25 21:34] VITALS: BP 141/79; PULSE 76; RESP 18; TEMP 36.7; O2SAT 100
== END 2020-02-25 21:40 ==
LOC: ANHED 02-22 00:41 → ANH3MEDSUR 02-22 00:47
PROVIDERS: Emergency Medicine; Physician Assistant; Admitting Provider Internal Medicine; Emergency Provider Emergency Medicine; PCP Internal Medicine; Visit Provider Physician Assistant
DX: A41.9 Sepsis, unspecified organism (principal); B37.49 Other urogenital candidiasis; R33.9 Retention of urine, unspecified; E11.65 Type 2 diabetes mellitus with hyperglycemia; E87.6 Hypokalemia; D64.9 Anemia, unspecified; R11.2 Nausea with vomiting, unspecified; R19.7 Diarrhea, unspecified; I10 Essential (primary) hypertension; I25.2 Old myocardial infarction; I69.354 Hemiplegia and hemiparesis following cerebral infarction affecting left non-dominant side; Z79.4 Long term (current) use of insulin; Z89.612 Acquired absence of left leg above knee; G40.909 Epilepsy, unspecified, not intractable, without status epilepticus; Z87.891 Personal history of nicotine dependence
CPT/HCPCS: 36415; 71046; 74176; 78580; 78582; 80048; 80053; 81001; 82607; 82728; 82746; 83540; 83550; 83605; 83690; 83735; 84466; 85025; 85027; 85380; 87040; 87086; 87088; 87106; 87635; 93005; 96361; 96365; 96367; 96374; 96375; 96376; 99285; A9270; A9540; A9558; C9113; C9803; G0378; G0379; J0131; J0696; J1450; J1815; J2405; J3480; J7030; U0003

== ENCOUNTER 2020-02-28 07:56 | Inpatient (IN) | payer OTHER, SELFPAY ==
[2020-02-28] VITALS (33 sets, daily range): BP systolic 78–116; BP diastolic 51–75; PULSE 86–102; RESP 8–27; TEMP 36.4–36.7; O2SAT 91–100; BMI 24.3
--- NOTE | ~2020-02-28 | XR_ITS ---
XR abdomen/kub 1V 03/06/2020 19:09 Indication: Vomiting. Possible ileus. Procedure: KUB Comparison: 11/12/2008 Findings: There is fecal impaction of the rectum. Nonobstructive bowel gas pattern. Lung bases unrema rkable. There are cholecystectomy clips. Moderate lumbar spondylosis. No acute osseous abnormality. Impression: 1: Fecal impaction of the rectum. Nonobstructive bowel gas pattern. Reviewed, dictated and finalized at location A. Impression: 1: Fecal impaction of the rectum. Nonobstructive bowel gas pattern.
--- NOTE | ~2020-02-28 | XR_ITS ---
XR chest 1V portable 03/08/2020 10:21 Indication: Shortness of breath Procedure: AP portable chest Comparison: 02/28/2020 and 02/23/2020 Findings: Heart size normal. Prominent right nipple shadow. No focal air space disease, pulmonary darryl ma, pleural effusion or suspected pneumothorax. No acute osseous abnormality. Impression: 1: No acute cardiopulmonary disease. Reviewed, dictated and finalized at location B. Impression: 1: No acute cardiopulmonary disease.
--- NOTE | ~2020-02-28 | US_ITS ---
US abdomen complete DATE: 02/29/2020 12:18 INDICATION: Generalized abdominal pain TECHNIQUE: Real-time imaging of the abdomen, Doppler evaluation COMPARISON: 02/21/2020 CT abdomen pelvis FINDINGS: The gallbladder is surgically absent. No hepatic space-occupying mass lesion is evident. Normal hepatopedal portal venous flow direction. T he common bile duct measures 3.9 mm, within normal limits. The pancreas is obscured by bowel gas but appears unremarkable on 02/21/2020 CT abdomen pelvis examina tion. The spleen is not optimally demonstrated due to body habitus but is also unremarkable on the re cent CT examination. The right kidney measures approximately 12.4 cm length, the left kidney approximately 12 cm length. N o renal mass lesion or hydronephrosis. Normal caliber of the abdominal aorta. The inferior vena cava areas is unremarkable. IMPRESSION: Status post cholecystectomy; no bile duct dilatation Reviewed, dictated and finalized at Location A. Reviewed, dictated and finalized at location A.
--- NOTE | ~2020-02-28 | XR_ITS ---
EXAMINATION: XR chest 1V portable DATE: 02/28/2020 08:32 INDICATION: Acute chest pain, nausea and vomiting TECHNIQUE: frontal view of the chest was obtained. COMPARISON: Chest radiograph dated 02/23/2020 FINDINGS: The lungs remain clear with no focal airspace opacities, pulmonary edema, pleural effusion or pneumot horax. The cardiomediastinal silhouette is normal. IMPRESSION: 1. No acute cardiopulmonary disease. Reviewed, dictated and finalized at location A.
--- NOTE | 2020-02-28 08:01 | ECG_ITS ---
Measurements Intervals [place] Rate: 93 P: 35 IL: 136 QRS: -8 QRSD: 94 T: 57 QT: 352 QTc: 438 Interpretive Statements SINUS RHYTHM ATRIAL PREMATURE COMPLEX DELAYED PRECORDIAL R/S TRANSITION LOW QRS VOLTAGE- DIFFUSE LEADS MINIMAL Q WAVES- LATERAL LEADS CONSIDER INFERIOR INFARCT, AGE INDETERMINATE BASELINE ARTIFACT- V1 ABNORMAL ECG Electronically Signed On 02-28-2020 8:14:46 CDT by Morris Borreor D.O.
--- NOTE | 2020-02-28 08:05 | ED.ABDPAIN ---
HPI - Abdominal Pain General Chief Complaint: Chest Pain Stated Complaint: n/v,cp Time Seen by Provider: 02/28/20 08:01 History of Present Illness HPI narrative: 49 yo male w/ h/o DM, Stroke, [place], left AKA BIBEMS from Periumbilical abdominal pain x1 day. Radiates into his chest. Feels like heart burn. Associated with nausea and one episode of vomiting. Additionally said that he was having some chest pain earlier. No SOB. He has a chronic indwelling ludwig since stroke. Related Data Home Medications Medication Instructions Recorded Confirmed Lantus Solostar U-100 Insulin 30 unit SUBCUT DAILY 02/22/20 02/28/20 acetaminophen [Tylenol Extra 500 mg PO Q8H PRN 02/22/20 02/28/20 Strength] atorvastatin 40 mg PO HS 02/22/20 02/28/20 escitalopram oxalate [Lexapro] 5 mg PO DAILY 02/22/20 02/28/20 lisinopril 20 mg PO DAILY 02/22/20 02/28/20 ondansetron HCl [Zofran] 4 mg PO Q6H PRN 02/22/20 02/28/20 pantoprazole 40 mg PO DAILY 02/22/20 02/28/20 polyethylene glycol 3350 17 g PO DAILY 02/22/20 02/28/20 quetiapine 100 mg PO HS 02/22/20 02/28/20 tramadol 50 mg PO BID PRN 02/22/20 02/28/20 Allergies Allergy/AdvReac Type Severity Reaction Status Date / Time ketorolac Allergy Intermediate red and Verified 02/28/20 08:12 itches iohexol Allergy Unknown Verified 02/28/20 08:12 [From contrast - CT, X-RAY] Contrast Media Allergy Unknown Unknown Uncoded 02/21/20 18:41 Review of Systems Review of Systems: All systems reviewed & are unremarkable except as noted in HPI and below Constitutional: Constitutional: Denies fever(s) Cardiovascular: Cardiovascular: Reports chest pain and Denies radiating jaw, neck or arm pain Respiratory: Respiratory: Denies cough and Denies dyspnea Gastrointestinal: Gastrointestinal: Reports abdominal pain, Denies constipation, Denies diarrhea, Reports nausea and Reports vomiting Musculoskeletal: Musculoskeletal: Denies back pain Neurologic: Denies dizziness and Denies weakness PMF Past Medical History Medical History CVA (cerebral vascular accident) CVA age 48 (2018) resulting in left hemiparesis. His CVA was complicated by cerebral edema recur requiring craniotomy, respiratory failure with tracheostomy and resultant dysphagia with g-tube placement and subsequent removal. History of left above knee amputation Hypertension Insulin dependent diabetes mellitus With a hemoglobin A1c was 7.30 May 2019 Myocardial infarction Poorly documented Pneumonia Seizure disorder as sequela of cerebrovascular accident Surgical History Surgical History Gastrojejunostomy tube status G-tube placed 2018 with subsequent removal in 2019 History of appendectomy Hx of cholecystectomy Status post craniectomy 2018 due to cerebral edema from CVA. Family History Family History Other Acute myocardial infarction Social History Social History Smoking status: Former smoker Additional smoking assessment comments: He started smoking at a young age and stopped 2018. Alcohol intake: former Substance use: former Substance use type: marijuana Other substance usage details: has not used since living in assisted Additional living arrangements comments: [facility] Gender identity (if verbalized by the patient): Male Spiritual care concerns: No Exam Const: General: no acute distress, alert and ill appearing chronically Nutritional Appearance: well nourished Orientation/consciousness: patient oriented x3 HENMT: Other: right craniotomy scar Neck: Neck: normal visual inspection and no lymphadenopathy Chest: Chest palpation & inspection: no tenderness Resp: Effort & Inspection: normal respiratory effort Auscultation: clear to auscultation bilaterally, no r
[2020-02-28 08:20] LABS: Basophils Percent Auto 0.2 % (0.2-1.2); Eosinophils Percent Auto 0.2 % (0-4.4); Hematocrit 29.7 % (42.0-52.0); Hemoglobin 9.9 g/dL (14.0-18.0); Immature Granulocyte Absolute 0.21 K/mm3 (0.00-0.031); Immature Granulocyte Percent A 1.1 % (0-0.5); Lymphocytes Absolute Auto 1.84 K/mm3 (0.9-3.2); Lymphocytes Percent Auto 9.9 % (18.3-44.2); Mean Corpuscular HGB Conc 33.3 g/dl (32-36); Mean Corpuscular Hemoglobin 30.4 pg (26-34); Mean Corpuscular Volume 91.1 fl (80-100); Mean Platelet Volume 11.9 fl (7.4-10.4); Monocytes Absolute Auto 1.4 K/mm3 (0.1-0.6); Monocytes Percent Auto 7.5 % (2.6-8.5); Neutrophils Absolute Auto 15.2 K/mm3 (1.3-6.7); Neutrophils Percent Auto 81.1 % (45.5-73.1); Platelet Count Result 184 k/mm3 (150-375); Red Blood Count 3.26 M/mm3 (4.6-6.20); Red Cell Distribution Width 13.3 % (11.5-14.5); White Blood Count 18.7 K/mm3 (4.5-10.0)
[2020-02-28] MEDS: SODIUM CHLORIDE 0.9% IV 1,000 ML 999 ML IV CONT ×2 (08:20→10:08)
[2020-02-28] MEDS: PANTOPRAZOLE SODIUM IV 40 MG VIAL IV PUSH (08:20)
--- NOTE | 2020-02-28 08:24 | PC.NURSE ---
pt refusing to have ludwig cath changed. edp aware.
[2020-02-28 08:29] LABS: INR 1.3; Prothrombin Time 15.9 Seconds (11.1-14.7)
[2020-02-28 08:30] LABS: Partial Thromboplastin Time 37.4 SECONDS (22.3-36.8)
[2020-02-28 08:34] LABS: Alanine Aminotransferase 10 U/L (4-50); Albumin Level 3.1 g/dL (3.5-5.1); Alkaline Phosphatase 107 U/L (38-126); Aspartate Amino Transferase 12 U/L (17-59); Bilirubin,Total 1.1 mg/dL (0.2-1.3); Blood Urea Nitrogen 14 mg/dL (9-20); Calcium 8.3 mg/dL (8.4-10.2); Carbon Dioxide 26 mmol/L (22-30); Chloride 100 mmol/L (98-107); Estimated Glomerular Filt Rate > 60; Glucose 188 mg/dL (75-110); Lipase 16 U/L (23-300); Potassium 4.1 mmol/L (3.4-5.0); Sodium 131 mmol/L (137-145)
[2020-02-28 08:46] LABS: Troponin I 0.017 ng/mL (0.000-0.034)
[2020-02-28 09:41] LABS: Add Urine Microscopic? YES; Appearance Urine Cloudy (Clear); Bacteria Urine Trace /hpf; Bilirubin Urine Negative (Negative); Blood Urine 1+ (Negative); Color Urine Yellow (Yellow); Glucose Urine UA Negative (Negative); Ketones Urine Negative (Negative); Leukocyte Esterase Ur 2+ LEU/UL (Negative); Mucus Urine Heavy /lpf; Nitrate Urine Negative (Negative); Protein Urine 2+ mg/dL (Negative); RBC Urine >75 /hpf (0-2); Specific Grav Ur 1.025 (1.001-1.035); Squamous Epithelial Cell Urine Many /hpf (Few); WBC Clumps Urine Present /HPF; WBC Urine >75 /hpf
[2020-02-28] MEDS: ONDANSETRON INJ 4 MG/2 ML VIAL IV PUSH ×2 (10:08→22:05)
--- NOTE | 2020-02-28 11:13 | PC.NURSE ---
This patient, Kaushik Vogel, was admitted to Medical Room 343-01. Patient/family oriented to hospital policies and general routines including ID bracelet, bed and alarms, visiting hours, pain management, procedures, bathroom and other care routines, personal items, smoking policy, room service/diet, and visiting hours. Valuables list has been completed. Information on how to activate the Rapid Response Team has been discussed. Patient/Family are encouraged to report perceived risks to care and to ask questions if they do not understand what they are told or what they should do.
--- NOTE | 2020-02-28 15:36 | PM.IMHP ---
H&P: HPI History of Present Illness Chief complaint: uti,leukocytosis Narrative: Kaushik Vogel is a 49 year old male who comes from [facility]. The patient was discharged from here on 02/25/2020 after being admitted to the hospital on 02/22/2020. For can did sepsis which was resolved. He had a yeast UTI. Is a chronic indwelling Meza catheter now. He was here for urinary retention. The patient is chronically on pain medication for chronic abdominal pain. The patient tells me that he has seen a GI specialist in the past. Because he stated that he had abdominal pain started the periumbilical area and radiated to his chest. It felt like it was heartburn. He was also nauseated had an episode of vomiting. Urine was found to be positive for UTI. He was started on Rocephin. He was asking for something for discomfort. He is having a lot of gas and diarrhea. H&H is 9.9 and 29.7 which improved from his last H&H. Sodium was slightly low at 131. Glucose 188. Which appears to be his average. Date of service 02/28/2020 Review of Systems Review of Systems: All systems reviewed & are unremarkable except as noted in HPI and below Constitutional: Constitutional: Reports as per HPI and Reports no additional constitutional complaints Eyes: Eyes: Reports as per HPI and Reports no additional eye complaints ENT: Reports system reviewed and no additional complaints, except as documented and Reports Normal hearing present Cardiovascular: Cardiovascular: Reports no additional cardiovascular complaints Respiratory: Respiratory: Reports no additional respiratory complaints and Reports no additional respiratory complaints Gastrointestinal: Gastrointestinal: Reports as per HPI and Reports no additional gastrointestinal complaints Musculoskeletal: Musculoskeletal: Reports no additional musculoskeletal complaints Integumentary/Breasts: Skin/Breast: Reports system reviewed and no additional complaints, except as docu and Reports as per HPI Neurologic: Reports system reviewed and no additional complaints, except as documented, Reports as per HPI and Reports Normal hearing present Psychiatric: Psychiatric: Reports no additional psychiatric complaints and Reports as per HPI Endocrine: Endocrine: Reports no additional endocrine complaints Hematologic/Lymphatic: Hematologic/Lymphatic: Reports no additional hematologic/lymphatic complaints Allergic/Immunologic: Allergic/Immunologic: Reports no additional allergic/immunologic complaints [facility] Past Medical History Medical History (Updated 02/28/20 @ 15:46 by Jody Guerra NP) BPH (benign prostatic hyperplasia) CVA (cerebral vascular accident) CVA age 48 (2018) resulting in left hemiparesis. His CVA was complicated by cerebral edema recur requiring craniotomy, respiratory failure with tracheostomy and resultant dysphagia with g-tube placement and subsequent removal. Depression History of left above knee amputation Hyperlipidemia Hypertension Insulin dependent diabetes mellitus With a hemoglobin A1c was 7.30 May 2019 Myocardial infarction Poorly documented Pneumonia Seizure disorder as sequela of cerebrovascular accident Surgical History Surgical History (Updated 02/28/20 @ 15:42 by Jody Guerra NP) Gastrojejunostomy tube status G-tube placed 2017 with subsequent removal in 2019 History of appendectomy History of tracheostomy Hx of cholecystectomy Status post craniectomy 2018 due to cerebral edema from CVA. Family History Family History (Updated 02/28/20 @ 15:44 by Jody Guerra NP) Sibling Acute myocardial infarction from acute heart attack according to the patient his brother was only 25 years old when he had a massive [place] Father Acute myocardial infarction Undetermined manner of , suicide suspected Mother Contact with adder as cause of accidental injury in a motor vehicle accident Social History Social History (Updated
[2020-02-28 17:39] LABS: Glucose Point of Care 171 (65-105)
[2020-02-28] MEDS: traMADol HCL 50 MG TABLET PO (18:31)
[2020-02-28] MEDS: SODIUM CHLORIDE 0.9% IV 1,000 ML 75 ML IV CONT (19:21)
[2020-02-28] MEDS: FAMOTIDINE 20 MG/2 ML VIAL IV PUSH (22:05)
[2020-02-28] MEDS: ATORVASTATIN 40 MG TABLET PO (22:05)
[2020-02-28] MEDS: QUEtiapine FUMARATE 100 MG TABLET PO (22:05)
[2020-02-28 22:36] LABS: Glucose Point of Care 127 (65-105)
[2020-02-29 05:33] LABS: Lactic Acid 0.9 mmol/L (0.7-2.1)
[2020-02-29 05:38] LABS: Alanine Aminotransferase 8 U/L (4-50); Albumin Level 2.9 g/dL (3.5-5.1); Alkaline Phosphatase 102 U/L (38-126); Aspartate Amino Transferase 13 U/L (17-59); Bilirubin,Total 1.2 mg/dL (0.2-1.3); Blood Urea Nitrogen 15 mg/dL (9-20); Calcium 8.2 mg/dL (8.4-10.2); Carbon Dioxide 26 mmol/L (22-30); Chloride 106 mmol/L (98-107); Estimated CRCL calculation 147 ml/min; Estimated Glomerular Filt Rate > 60; Glucose 113 mg/dL (75-110); Magnesium 1.7 mg/dL (1.6-2.3); Potassium 4.1 mmol/L (3.4-5.0); Sodium 137 mmol/L (137-145)
[2020-02-29 05:53] LABS: CRP 21.8 mg/dL (<1.0)
[2020-02-29 05:58] LABS: Lipase < 10 U/L (23-300)
[2020-02-29 05:59] VITALS: BP 110/50; PULSE 91; RESP 15; TEMP 36; O2SAT 99
[2020-02-29 08:00] VITALS: PULSE 91; RESP 15; O2SAT 99
[2020-02-29 08:21] LABS: Glucose Point of Care 118 (65-105)
[2020-02-29] MEDS: INSULIN GLARGINE (*BKC) 100 UNITS/ML 30 UNITS SUB-Q (10:00)
[2020-02-29] MEDS: SODIUM CHLORIDE 0.9% IV 1,000 ML 75 ML IV CONT ×2 (10:05→22:42)
[2020-02-29] MEDS: FAMOTIDINE 20 MG/2 ML VIAL IV PUSH ×2 (10:10→20:30)
[2020-02-29] MEDS: TAMSULOSIN HCL 0.4 MG CAPSULE PO (10:11)
[2020-02-29] MEDS: ESCITALOPRAM OXALATE 5 MG TABLET PO (10:11)
[2020-02-29] MEDS: FLUCONAZOLE 100 MG TABLET PO (10:11)
[2020-02-29] MEDS: lisinopriL 20 MG TABLET PO (10:11)
[2020-02-29 12:27] LABS: Glucose Point of Care 157 (65-105)
[2020-02-29 14:00] VITALS: BP 91/53; PULSE 89; RESP 18; TEMP 36.4; O2SAT 100
[2020-02-29] MEDS: traMADol HCL 50 MG TABLET PO (14:05)
[2020-02-29 14:10] LABS: Thyroid Stimulating Hormone Reflex 0.734 uIU/mL (0.465-4.68)
[2020-02-29 16:54] LABS: Glucose Point of Care 212 (65-105)
[2020-02-29] MEDS: INSULIN ASPART (*BKC) 100 UNITS/ML SUB-Q (16:57)
--- NOTE | 2020-02-29 18:21 | PM.IMPN ---
Progress Note: A&P Assessment and Plan (1) Acute UTI: Code(s): N39.0 - Urinary tract infection, site not specified Status: Acute Assessment and Plan: The patient was here approximately 1 week ago. Patient had yeast growing in his culture. The patient was started on ceftriaxone at this time. Patient has a chronic indwelling Meza catheter. Patient is complaining of severe abdominal pain , continue with his home dose of Ultram. The patient was started on Diflucan the last admission. Urine already growing E coli and strep viridans and will await sensitivities (2) Diabetes mellitus with hyperglycemia: Qualifiers: Diabetes mellitus type: type 2 Diabetes mellitus shelter insulin use: with shelter use Qualified Code(s): E11.65 - Type 2 diabetes mellitus with hyperglycemia; Z79.4 - retirement (current) use of insulin Code(s): E11.65 - Type 2 diabetes mellitus with hyperglycemia Status: Acute Assessment and Plan: Sliding scale insulin and continue with Lantus. (3) Hyperlipidemia: Code(s): E78.5 - Hyperlipidemia, unspecified Status: Chronic Assessment and Plan: Continue with Lipitor (4) Hypertension: Code(s): I10 - Essential (primary) hypertension Status: Chronic Assessment and Plan: hold lisinopril with bp soft (5) BPH (benign prostatic hyperplasia): Code(s): N40.0 - Benign prostatic hyperplasia without lower urinary tract symptoms Status: Chronic Assessment and Plan: Continue tamsulosin (6) Urinary retention: Code(s): R33.9 - Retention of urine, unspecified Status: Resolved Assessment and Plan: Patient has a chronic indwelling Meza catheter. (7) Depression: Code(s): F32.9 - Major depressive disorder, single episode, unspecified Status: Chronic Assessment and Plan: Continue with Lexapro Subjective Date/time seen: 02/29/20 18:21 Interval history: Date of visit 02/28 49-year-old hypertensive white male with chronic indwelling Meza previous CVA admitted with his chronic abdominal pain leukocytosis and UTI. Recently here when urine grew E stain use urine in treated with Diflucan. Doing well until last 24 hours when abdominal pain worsened Long history of abdominal discomfort.. Exam Narrative: Exam Narrative: Blood pressure 100/50 pulse is 90 saturating 99% room air afebrile Neck supple no adenopathy Lungs clear CV regular rate rhythm Abdomen is soft bowel sounds are present no rebound or guarding Extremities left above knee amputation right no edema dorsalis pedis posterior tibial 1+ Neuro alert cooperative left hip of paresis from previous CVA, no new focal deficits Objective Data Vital Signs Vital Signs: Vital Signs - 24 hr 02/28/20 21:52 02/28/20 22:15 02/29/20 05:59 Temperature 36.5 C 36.0 C L Pulse Rate 91 91 91 Respiratory Rate 16 16 15 Blood Pressure 97/54 L 110/50 L Pulse Oximetry 100 100 99 02/29/20 08:00 02/29/20 14:00 Temperature 36.4 C Pulse Rate 91 89 Respiratory Rate 15 18 Blood Pressure 91/53 L Pulse Oximetry 99 100 Intake/Output Intake/Output: Intake & Output 02/26/20 02/27/20 02/28/20 02/29/20 23:59 23:59 23:59 23:59 Intake Total 1710 2020 Output Total 375 1350 Balance 1335 670 Meds/Results Medications: Active Medications Generic Name Dose Route Start Last Admin Trade Name Freq PRN Reason Stop Dose Admin Atorvastatin Calcium 40 mg 02/28/20 21:00 02/28/20 22:05 Lipitor PO 40 mg HS HAY Administration Dextrose 12.5 gm 02/28/20 15:07 Dextrose 50% Syringe IV PUSH PRN PRN Hypoglycemia Protocol Escitalopram Oxalate 5 mg 02/29/20 09:00 02/29/20 10:11 Lexapro PO 5 mg DAILY HAY Administration Famotidine 20 mg 02/28/20 21:00 02/29/20 10:10 Pepcid Iv IV PUSH 20 mg Q12HR HAY Administration Glucagon 1 mg 02/28/20 15:07 Glucagon For Inj IM PRN PRN Hy
[2020-02-29] MEDS: ATORVASTATIN 40 MG TABLET PO (20:30)
[2020-02-29] MEDS: QUEtiapine FUMARATE 100 MG TABLET PO (20:30)
[2020-02-29 21:51] LABS: Glucose Point of Care 245 (65-105)
[2020-02-29 22:00] VITALS: BP 92/58; PULSE 86; RESP 16; TEMP 36.7; O2SAT 98
[2020-02-29 22:20] VITALS: PULSE 86; RESP 16; O2SAT 98
[2020-03-01 06:00] VITALS: BP 97/54; PULSE 72; RESP 20; TEMP 36.7; O2SAT 97
[2020-03-01 06:02] LABS: Basophils Percent Auto 0.2 % (0.2-1.2); Eosinophils Absolute Auto 0.2 K/mm3 (0-0.3); Eosinophils Percent Auto 1.5 % (0-4.4); Hematocrit 30.8 % (42.0-52.0); Hemoglobin 9.8 g/dL (14.0-18.0); Immature Granulocyte Absolute 0.05 K/mm3 (0.00-0.031); Immature Granulocyte Percent A 0.4 % (0-0.5); Lymphocytes Percent Auto 14.9 % (18.3-44.2); Mean Corpuscular HGB Conc 31.8 g/dl (32-36); Mean Corpuscular Hemoglobin 30.1 pg (26-34); Mean Corpuscular Volume 94.5 fl (80-100); Mean Platelet Volume 12.1 fl (7.4-10.4); Monocytes Absolute Auto 1.1 K/mm3 (0.1-0.6); Monocytes Percent Auto 8.5 % (2.6-8.5); Neutrophils Absolute Auto 9.5 K/mm3 (1.3-6.7); Neutrophils Percent Auto 74.5 % (45.5-73.1); Platelet Count Result 152 k/mm3 (150-375); Red Blood Count 3.26 M/mm3 (4.6-6.20); Red Cell Distribution Width 13.5 % (11.5-14.5); White Blood Count 12.8 K/mm3 (4.5-10.0)
[2020-03-01 06:25] LABS: Blood Urea Nitrogen 11 mg/dL (9-20); Carbon Dioxide 23 mmol/L (22-30); Chloride 108 mmol/L (98-107); Estimated CRCL calculation 147 ml/min; Estimated Glomerular Filt Rate > 60; Glucose 100 mg/dL (75-110); Potassium 3.6 mmol/L (3.4-5.0); Sodium 137 mmol/L (137-145)
[2020-03-01 08:07] LABS: Glucose Point of Care 119 (65-105)
[2020-03-01] MEDS: INSULIN GLARGINE (*BKC) 100 UNITS/ML 30 UNITS SUB-Q (09:29)
[2020-03-01] MEDS: ESCITALOPRAM OXALATE 5 MG TABLET PO (09:31)
[2020-03-01] MEDS: FAMOTIDINE 20 MG/2 ML VIAL IV PUSH ×2 (09:31→20:02)
[2020-03-01] MEDS: TAMSULOSIN HCL 0.4 MG CAPSULE PO (09:32)
[2020-03-01] MEDS: traMADol HCL 50 MG TABLET PO (09:38)
[2020-03-01 11:50] LABS: Glucose Point of Care 115 (65-105)
[2020-03-01 13:56] VITALS: BP 108/76; PULSE 85; RESP 18; TEMP 36.2; O2SAT 100
[2020-03-01] MEDS: POTASSIUM CHLORIDE 20 MEQ TABLET 40 MEQ PO (15:58)
[2020-03-01 16:54] LABS: Glucose Point of Care 132 (65-105)
[2020-03-01] MEDS: QUEtiapine FUMARATE 100 MG TABLET PO (20:01)
[2020-03-01] MEDS: ATORVASTATIN 40 MG TABLET PO (20:01)
[2020-03-01 20:21] LABS: Glucose Point of Care 166 (65-105)
[2020-03-01 22:00] VITALS: BP 106/64; PULSE 86; RESP 16; TEMP 37; O2SAT 100
--- NOTE | 2020-03-01 22:10 | PM.IMPN ---
Progress Note: A&P Assessment and Plan (1) Acute UTI: Code(s): N39.0 - Urinary tract infection, site not specified Status: Acute Assessment and Plan: The patient was here approximately 1 week ago. Patient had yeast growing in his culture. The patient was started on ceftriaxone at this time. Patient has a chronic indwelling Meza catheter. Patient is complaining of abdominal pain as usual but continues to eat and have normal bms , continue with his home dose of Ultram. The patient was started on Diflucan the last admission. Urine already growing E coli and strep viridans and started on ceftriaxone but sens today ESBL ecoli resistant to ceftriaxone but wbc has fallen None the less change to ertapenem (2) Diabetes mellitus with hyperglycemia: Qualifiers: Diabetes mellitus type: type 2 Diabetes mellitus usp insulin use: with usp use Qualified Code(s): E11.65 - Type 2 diabetes mellitus with hyperglycemia; Z79.4 - senior care (current) use of insulin Code(s): E11.65 - Type 2 diabetes mellitus with hyperglycemia Status: Acute Assessment and Plan: Sliding scale insulin and continue with Lantus. FBS 100 today (3) Hyperlipidemia: Code(s): E78.5 - Hyperlipidemia, unspecified Status: Chronic Assessment and Plan: Continue with Lipitor (4) Hypertension: Code(s): I10 - Essential (primary) hypertension Status: Chronic Assessment and Plan: continue to hold lisinopril with bp soft (5) BPH (benign prostatic hyperplasia): Code(s): N40.0 - Benign prostatic hyperplasia without lower urinary tract symptoms Status: Chronic Assessment and Plan: Continue tamsulosin (6) Urinary retention: Code(s): R33.9 - Retention of urine, unspecified Status: Resolved Assessment and Plan: Patient has a chronic indwelling Meza catheter. (7) Depression: Code(s): F32.9 - Major depressive disorder, single episode, unspecified Status: Chronic Assessment and Plan: Continue with Lexapro Subjective Date/time seen: 03/01/20 22:10 Interval history: Date of visit 03/01 49-year-old hypertensive white male with chronic indwelling Meza previous CVA admitted with his chronic abdominal pain leukocytosis and UTI. Recently here when urine grew yeast in urine and treated with Diflucan. Doing well until last 24 hours when abdominal pain worsened Long history of abdominal discomfort.with previous evalulation Exam Narrative: Exam Narrative: Blood pressure 108/76 pulse is 84 saturating 99% room air afebrile Neck supple no adenopathy Lungs clear CV regular rate rhythm Abdomen is soft bowel sounds are present no rebound or guarding Extremities left above knee amputation right no edema dorsalis pedis posterior tibial 1+ Neuro alert cooperative left hemiparesis from previous CVA, no new focal deficits Objective Data Vital Signs Vital Signs: Vital Signs - 24 hr 02/29/20 22:20 03/01/20 06:00 03/01/20 13:56 Temperature 36.7 C 36.2 C L Pulse Rate 86 72 85 Respiratory Rate 16 20 18 Blood Pressure 97/54 L 108/76 Pulse Oximetry 98 97 100 Intake/Output Intake/Output: Intake & Output 02/27/20 02/28/20 02/29/20 03/01/20 23:59 23:59 23:59 23:59 Intake Total 1710 3310 860 Output Total 375 1350 1825 Balance 1335 1960 -965 Meds/Results Medications: Active Medications Generic Name Dose Route Start Last Admin Trade Name Freq PRN Reason Stop Dose Admin Atorvastatin Calcium 40 mg 02/28/20 21:00 03/01/20 20:01 Lipitor PO 40 mg HS HAY Administration Dextrose 12.5 gm 02/28/20 15:07 Dextrose 50% Syringe IV PUSH PRN PRN Hypoglycemia Protocol Escitalopram Oxalate 5 mg 02/29/20 09:00 03/01/20 09:31 Lexapro PO 5 mg DAILY HAY Administration Famotidine 20 mg 02/28/20 21:00 03/01/20 20:02 Pepcid Iv IV PUSH 20 mg Q12HR HAY Administration Glucagon 1 mg
[2020-03-01] MEDS: ERTAPENEM 1 GM/NS 50 ML 1 GM/50 ML BAG IVPB (22:28)
[2020-03-02 06:00] VITALS: BP 105/68; PULSE 76; RESP 16; TEMP 37; O2SAT 98
[2020-03-02 06:33] LABS: Basophils Percent Auto 0.2 % (0.2-1.2); Eosinophils Absolute Auto 0.2 K/mm3 (0-0.3); Eosinophils Percent Auto 2.3 % (0-4.4); Hematocrit 28.9 % (42.0-52.0); Hemoglobin 9.4 g/dL (14.0-18.0); Immature Granulocyte Absolute 0.03 K/mm3 (0.00-0.031); Immature Granulocyte Percent A 0.3 % (0-0.5); Lymphocytes Absolute Auto 1.83 K/mm3 (0.9-3.2); Lymphocytes Percent Auto 17.6 % (18.3-44.2); Mean Corpuscular HGB Conc 32.5 g/dl (32-36); Mean Corpuscular Hemoglobin 30.2 pg (26-34); Mean Corpuscular Volume 92.9 fl (80-100); Mean Platelet Volume 12.5 fl (7.4-10.4); Monocytes Absolute Auto 0.8 K/mm3 (0.1-0.6); Monocytes Percent Auto 7.3 % (2.6-8.5); Neutrophils Absolute Auto 7.5 K/mm3 (1.3-6.7); Neutrophils Percent Auto 72.3 % (45.5-73.1); Platelet Count Result 159 k/mm3 (150-375); Red Blood Count 3.11 M/mm3 (4.6-6.20); Red Cell Distribution Width 13.4 % (11.5-14.5); White Blood Count 10.4 K/mm3 (4.5-10.0)
[2020-03-02 06:53] LABS: Blood Urea Nitrogen 7 mg/dL (9-20); Calcium 8.3 mg/dL (8.4-10.2); Carbon Dioxide 26 mmol/L (22-30); Chloride 106 mmol/L (98-107); Estimated CRCL calculation 173 ml/min; Estimated Glomerular Filt Rate > 60; Glucose 101 mg/dL (75-110); Potassium 3.8 mmol/L (3.4-5.0); Sodium 136 mmol/L (137-145)
[2020-03-02 08:15] LABS: Glucose Point of Care 115 (65-105)
[2020-03-02] MEDS: INSULIN GLARGINE (*BKC) 100 UNITS/ML 30 UNITS SUB-Q (09:41)
[2020-03-02] MEDS: polyethylene glycoL 3350 17 GM POWD.PACK PO (09:43)
[2020-03-02] MEDS: ENOXAPARIN 40 MG/0.4 ML SYRINGE SUB-Q (09:43)
[2020-03-02] MEDS: ESCITALOPRAM OXALATE 5 MG TABLET PO (09:43)
[2020-03-02] MEDS: FAMOTIDINE 20 MG/2 ML VIAL IV PUSH (09:43)
[2020-03-02] MEDS: TAMSULOSIN HCL 0.4 MG CAPSULE PO (09:43)
[2020-03-02 11:55] LABS: Glucose Point of Care 171 (65-105)
[2020-03-02 14:00] VITALS: BP 150/87; PULSE 85; RESP 16; TEMP 36.3; O2SAT 99
--- NOTE | 2020-03-02 15:07 | PM.IMPN ---
Progress Note: A&P Assessment and Plan (1) Acute UTI: Code(s): N39.0 - Urinary tract infection, site not specified Status: Acute Assessment and Plan: The patient was here approximately 1 week ago. Patient had yeast growing in his urine culture. The patient was started on ceftriaxone at this time. Patient has a chronic indwelling Meza catheter. Patient is complaining of abdominal pain as usual but continues to eat normally with normal BMs. Continue with his home dose of Ultram prn. Urine culture growing ESBL E coli and strep viridans. He was started on ceftriaxone but sens showing ESBL Ecoli sensitive to Ertapenem Day 2. (2) Diabetes mellitus with hyperglycemia: Qualifiers: Diabetes mellitus tank terminal gauger insulin use: with penitentiary use Diabetes mellitus type: type 2 Qualified Code(s): E11.65 - Type 2 diabetes mellitus with hyperglycemia; Z79.4 - care home (current) use of insulin Code(s): E11.65 - Type 2 diabetes mellitus with hyperglycemia Status: Acute Assessment and Plan: Glucose reviewed on 03/02/20. Glucose elevated at times. Continue monitoring Accu-Cheks with sliding scale insulin and continue with Lantus (3) Hyperlipidemia: Code(s): E78.5 - Hyperlipidemia, unspecified Status: Chronic Assessment and Plan: LFTs within normal limits. Continue with Lipitor (4) Hypertension: Code(s): I10 - Essential (primary) hypertension Status: Chronic Assessment and Plan: BP reviewed on 03/02/20. BP soft at times. Lisinopril remains on hold (5) BPH (benign prostatic hyperplasia): Code(s): N40.0 - Benign prostatic hyperplasia without lower urinary tract symptoms Status: Chronic Assessment and Plan: Stable. Continue tamsulosin (6) Urinary retention: Code(s): R33.9 - Retention of urine, unspecified Status: Resolved Assessment and Plan: Stable. Patient has a chronic indwelling Meza catheter. (7) Depression: Code(s): F32.9 - Major depressive disorder, single episode, unspecified Status: Chronic Assessment and Plan: Mood stable. Continue with Lexapro Subjective Date/time seen: 03/02/20 15:07 Interval history: Date of visit 03/02. 49yo male with HTN, hx of CVA with left hemiplegia and chronic indwelling Meza admitted with his chronic abdominal pain, leukocytosis and UTI. Recently here when urine grew yeast in urine and treated with Diflucan. Assuming care. Chart reviewed. Patient slept well last night. Still the abdominal pain but says is old. Denies chest pain or back pain. No shortness of breath. He is feeding himself. He had a large bowel movement prior to admission. Exam Narrative: Exam Narrative: AF 150/87 85 16 99% ra Gen - NARD Chest -lungs clear anteriorly. CV - RRR S1/S2 Abd -soft. Nondistended. Positive bowel sounds. Ext -left above the knee amputation. No pedal edema right lower extremity Neuro - Alert and oriented. Left hemiplegia Psych - Nml mood and affect Skin - Warm and dry Objective Data Vital Signs Vital Signs: Vital Signs - 24 hr 03/01/20 22:00 03/02/20 06:00 03/02/20 14:00 Temperature 98.6 F 98.6 F 97.4 F L Pulse Rate 86 76 85 Respiratory Rate 16 16 16 Blood Pressure 106/64 105/68 150/87 H Pulse Oximetry 100 98 99 Intake/Output Intake/Output: Intake & Output 02/28/20 02/29/20 03/01/20 03/02/20 23:59 23:59 23:59 23:59 Intake Total 1710 3310 910 980 Output Total 375 1350 1825 825 Balance 1335 1960 -915 155 Meds/Results Medications: Active Medications Generic Name Dose Route Start Last Admin Trade Name Freq PRN Reason Stop Dose Admin Atorvastatin Calcium 40 mg 02/28/20 21:00 03/01/20 20:01 Lipitor PO 40 mg HS HAY Administration Dextrose 12.5 gm 02/28/20 15:07 Dextrose 50% Syringe IV PUSH PRN PRN Hypoglycemia Protocol Enoxaparin Sodium 40 mg 03/02/20 09:00 03/02
[2020-03-02] MEDS: traMADol HCL 50 MG TABLET PO ×2 (15:44→21:34)
[2020-03-02 16:40] LABS: Glucose Point of Care 225 (65-105)
[2020-03-02] MEDS: INSULIN ASPART (*BKC) 100 UNITS/ML SUB-Q (17:30)
[2020-03-02] MEDS: QUEtiapine FUMARATE 100 MG TABLET PO (20:07)
[2020-03-02] MEDS: ATORVASTATIN 40 MG TABLET PO (20:07)
[2020-03-02] MEDS: FAMOTIDINE 20 MG TABLET PO (20:09)
[2020-03-02 20:17] LABS: Glucose Point of Care 192 (65-105)
[2020-03-02] MEDS: ERTAPENEM 1 GM/NS 50 ML 1 GM/50 ML BAG IVPB (21:24)
[2020-03-02 21:43] VITALS: BP 117/56; PULSE 89; RESP 16; TEMP 36.7; O2SAT 100
[2020-03-03 06:00] VITALS: BP 105/61; PULSE 81; RESP 16; TEMP 36.7; O2SAT 97
[2020-03-03 07:40] LABS: Glucose Point of Care 115 (65-105)
[2020-03-03] MEDS: TAMSULOSIN HCL 0.4 MG CAPSULE PO (08:24)
[2020-03-03] MEDS: ENOXAPARIN 40 MG/0.4 ML SYRINGE SUB-Q (08:24)
[2020-03-03] MEDS: INSULIN GLARGINE (*BKC) 100 UNITS/ML 30 UNITS SUB-Q (08:25)
[2020-03-03] MEDS: ESCITALOPRAM OXALATE 5 MG TABLET PO (08:32)
[2020-03-03] MEDS: FAMOTIDINE 20 MG TABLET PO ×2 (08:32→20:14)
[2020-03-03 11:42] LABS: Glucose Point of Care 112 (65-105)
[2020-03-03 13:29] LABS: SARS-CoV-2 RNA PCR Negative
[2020-03-03 14:00] VITALS: BP 91/51; PULSE 99; RESP 18; TEMP 35.8; O2SAT 100
[2020-03-03] MEDS: LIDOCAINE HCL 1% LOCAL INJ 2 ML AMPUL 5 ML INFILTRATE (15:05)
[2020-03-03 16:26] LABS: Glucose Point of Care 160 (65-105)
--- NOTE | 2020-03-03 17:53 | PM.IMPN ---
Progress Note: A&P Assessment and Plan (1) Acute UTI: Code(s): N39.0 - Urinary tract infection, site not specified Status: Acute Assessment and Plan: Recently treated with Diflucan for funguria. UA noted. The patient was started on ceftriaxone at this time. Patient has a chronic indwelling Meza catheter. Patient is complaining of abdominal pain as usual but continues to eat normally with normal BMs. Continue with his home dose of Ultram prn. Urine culture growing strep viridans and ESBL Ecoli sensitive to Ertapenem Day 3. Midline placed for IV abx at [place]. (2) Diabetes mellitus with hyperglycemia: Qualifiers: Diabetes mellitus type: type 2 Diabetes mellitus intermediate accountant insulin use: with jail use Qualified Code(s): E11.65 - Type 2 diabetes mellitus with hyperglycemia; Z79.4 - senior living (current) use of insulin Code(s): E11.65 - Type 2 diabetes mellitus with hyperglycemia Status: Acute Assessment and Plan: Glucose reviewed on 03/03/20. Glucose better controlled past 24 hours. Continue monitoring Accu-Cheks with sliding scale insulin and continue with Lantus. (3) Hyperlipidemia: Code(s): E78.5 - Hyperlipidemia, unspecified Status: Chronic Assessment and Plan: LFTs within normal limits. Continue with Lipitor. (4) Hypertension: Code(s): I10 - Essential (primary) hypertension Status: Chronic Assessment and Plan: BP reviewed on 03/03/20. BP still soft at times. Lisinopril remains on hold. (5) BPH (benign prostatic hyperplasia): Code(s): N40.0 - Benign prostatic hyperplasia without lower urinary tract symptoms Status: Chronic Assessment and Plan: Stable. Continue tamsulosin (6) Urinary retention: Code(s): R33.9 - Retention of urine, unspecified Status: Resolved Assessment and Plan: Stable. Patient has a chronic indwelling Meza catheter. Continue Flomax. (7) Depression: Code(s): F32.9 - Major depressive disorder, single episode, unspecified Status: Chronic Assessment and Plan: Mood stable. Continue with Lexapro Subjective Date/time seen: 03/03/20 17:53 Interval history: Date of visit 03/02. 49yo male with HTN, hx of CVA with left hemiplegia and chronic indwelling Meza admitted with his chronic abdominal pain, leukocytosis and UTI. Recently here with urine growing yeast and treated with Diflucan. No problems overnight. Slept well. Eating normally. Likes to color. Had large BM yesterday. Exam Narrative: Exam Narrative: AF 91/51 99 18 100% Gen - NARD lying almost flat in bed Chest -lungs clear anteriorly, nml RR CV - RRR S1/S2 Abd -soft. mild diffuse tenderness - Folet secured draining clear yellow urine Ext -left above the knee amputation. No pedal edema right lower extremity Neuro - Alert and oriented. Left hemiplegia Psych - in good spirits Skin - Warm and dry Objective Data Vital Signs Vital Signs: Vital Signs - 24 hr 03/02/20 21:43 03/03/20 06:00 03/03/20 14:00 Temperature 98.0 F 98.1 F 96.5 F L Pulse Rate 89 81 99 Respiratory Rate 16 16 18 Blood Pressure 117/56 L 105/61 91/51 L Pulse Oximetry 100 97 100 Intake/Output Intake/Output: Intake & Output 02/29/20 03/01/20 03/02/20 03/03/20 23:59 23:59 23:59 23:59 Intake Total 3310 910 1700 600 Output Total 1350 1825 1675 625 Balance 1960 -5 25 -25 Meds/Results Medications: Active Medications Generic Name Dose Route Start Last Admin Trade Name Freq PRN Reason Stop Dose Admin Atorvastatin Calcium 40 mg 02/28/20 21:00 03/02/20 20:07 Lipitor PO 40 mg HS HAY Administration Dextrose 12.5 gm 02/28/20 15:07 Dextrose 50% Syringe IV PUSH PRN PRN Hypoglycemia Protocol Enoxaparin Sodium 40 mg 03/02/20 09:00 03/03/20 08:24 Lovenox SUB-Q 40 mg DAILY HAY Administration Escitalopram Oxalate 5 mg 02/29/20 09:00 0
[2020-03-03] MEDS: CENTRAL LINE FLUSH 10 ML IV PUSH ×2 (18:06→21:15)
[2020-03-03 19:57] VITALS: BP 125/57; PULSE 94; RESP 16; TEMP 36.7; O2SAT 100
[2020-03-03] MEDS: traMADol HCL 50 MG TABLET PO (20:14)
[2020-03-03] MEDS: ATORVASTATIN 40 MG TABLET PO (20:14)
[2020-03-03] MEDS: QUEtiapine FUMARATE 100 MG TABLET PO (20:14)
[2020-03-03 20:15] VITALS: PULSE 94; RESP 16; O2SAT 100
[2020-03-03] MEDS: ERTAPENEM 1 GM/NS 50 ML 1 GM/50 ML BAG IVPB (21:15)
[2020-03-03] MEDS: ONDANSETRON INJ 4 MG/2 ML VIAL IV PUSH (21:15)
[2020-03-04 00:20] LABS: Glucose Point of Care 203 (65-105)
[2020-03-04 05:12] VITALS: BP 93/49; PULSE 90; RESP 18; TEMP 36.3; O2SAT 98
[2020-03-04 07:53] LABS: Glucose Point of Care 119 (65-105)
--- NOTE | 2020-03-04 08:58 | PM.DS ---
DS: Admitting Diagnosis Admitting Diagnosis Admitting Diagnosis: Urinary tract infection, site not specified DS: Discharge Diagnosis Discharge Diagnosis (1) Acute UTI: Code(s): N39.0 - Urinary tract infection, site not specified Status: Acute Assessment and Plan: Recently treated with Diflucan for funguria. Patient returns for nausea and vomiting and found to have a positive UA. The patient was started on ceftriaxone at this time. Patient has a chronic indwelling Ludwig catheter. Patient is complaining of abdominal pain as usual but continues to eat normally with normal BMs. We continued with his home dose of Ultram prn. Urine culture growing strep viridans and ESBL Ecoli sensitive to Ertapenem. Midline placed for IV abx at [place]. (2) Diabetes mellitus with hyperglycemia: Qualifiers: Diabetes mellitus type: type 2 Diabetes mellitus rodent exterminator insulin use: with custodial use Qualified Code(s): E11.65 - Type 2 diabetes mellitus with hyperglycemia; Z79.4 - ocean transportation intermediary (current) use of insulin Code(s): E11.65 - Type 2 diabetes mellitus with hyperglycemia Status: Acute Assessment and Plan: Glucose monitored closely. Glucose elevatd at times but mostly well controlled. Glucose monitoring with Accu-Cheks covering with sliding scale insulin. We continued with his home Lantus. (3) Hyperlipidemia: Code(s): E78.5 - Hyperlipidemia, unspecified Status: Chronic Assessment and Plan: LFTs are within normal limits. We continued with Lipitor. (4) Hypertension: Code(s): I10 - Essential (primary) hypertension Status: Chronic Assessment and Plan: BP monitored closely. BP soft at times. Lisinopril held here. (5) BPH (benign prostatic hyperplasia): Code(s): N40.0 - Benign prostatic hyperplasia without lower urinary tract symptoms Status: Chronic Assessment and Plan: Stable. We continued tamsulosin (6) Urinary retention: Code(s): R33.9 - Retention of urine, unspecified Status: Resolved Assessment and Plan: Stable. Patient has a chronic indwelling Ludwig catheter. We continued Flomax. (7) Depression: Code(s): F32.9 - Major depressive disorder, single episode, unspecified Status: Chronic Assessment and Plan: Mood stable. We continued with Lexapro DS: Summary Hospital Course Reason for hospitalization: 49yo male with hx of CVA with left hemiplegia and chronic indwelling ludwig here for nausea and found to have UTI. Please see H&P for details. Hospital Course: As above Time Spent with Patient Time attestation: Total time spent providing and/or coordinating discharge services: 31 minutes Time spent: Greater than 30 minutes Specific discharge activities: Discussed with patient and staff. Prepared medical record. Exam Narrative: Exam Narrative: No n/v. Decreased appetite this morning. Has chronic abd pain. No CP or SOB. AF 93/49 90 18 98% ra Gen - NARD lying almost flat in bed Chest - CTA bilaterally CV - RRR S1/S2 Abd -soft. ND/NT, +BS - Ludwig secured draining clear yellow urine Ext -left above the knee amputation. No pedal edema right lower extremity Neuro - Alert and oriented. Left hemiplegia DS: Data Data Completed and Pending Labs on day of discharge: Labs from last 24 hours 03/04/20 03/03/20 03/03/20 07:51 20:13 16:23 POC Capillary Glucose 119 H 203 H 160 H SARS-CoV-2 RNA (RT-PCR) 03/03/20 03/03/20 11:39 01:54 POC Capillary Glucose 112 H SARS-CoV-2 RNA (RT-PCR) Negative Discharge Plan Discharge Attending physician on discharge: Ryan Forbes Discharging Clinician: Ryan Forbes Anticipated Discharge Date/Time: 03/04/20 09:10 Patient Disposition: [facility] Activity: as tolerated Diet: heart healthy Discharge Instructions: Continue routine Ludwig care. Continue rout
[2020-03-04] MEDS: CENTRAL LINE FLUSH 10 ML IV PUSH ×4 (09:02→22:00)
[2020-03-04] MEDS: TAMSULOSIN HCL 0.4 MG CAPSULE PO (09:02)
[2020-03-04] MEDS: ESCITALOPRAM OXALATE 5 MG TABLET PO (09:03)
[2020-03-04] MEDS: traMADol HCL 50 MG TABLET PO (09:09)
[2020-03-04] MEDS: INSULIN GLARGINE (*BKC) 100 UNITS/ML 30 UNITS SUB-Q (09:10)
[2020-03-04] MEDS: FAMOTIDINE 20 MG TABLET PO ×2 (09:13→20:34)
[2020-03-04 11:56] LABS: Glucose Point of Care 118 (65-105)
[2020-03-04 14:00] VITALS: BP 95/43; PULSE 100; RESP 16; TEMP 36.7; O2SAT 98
[2020-03-04 16:24] LABS: Glucose Point of Care 132 (65-105)
[2020-03-04 20:20] VITALS: PULSE 94; RESP 16; O2SAT 98
[2020-03-04 20:32] VITALS: BP 98/71; PULSE 94; RESP 16; TEMP 36.3; O2SAT 98
[2020-03-04] MEDS: QUEtiapine FUMARATE 100 MG TABLET PO (20:34)
[2020-03-04] MEDS: ATORVASTATIN 40 MG TABLET PO (20:34)
[2020-03-04] MEDS: ERTAPENEM 1 GM/NS 50 ML 1 GM/50 ML BAG IVPB (21:45)
[2020-03-04 21:56] LABS: Glucose Point of Care 198 (65-105)
[2020-03-05 05:53] VITALS: BP 92/51; PULSE 92; RESP 20; TEMP 36.4; O2SAT 97
[2020-03-05] MEDS: CENTRAL LINE FLUSH 10 ML IV PUSH ×4 (07:27→21:00)
[2020-03-05 07:31] LABS: Glucose Point of Care 105 (65-105)
[2020-03-05] MEDS: ENOXAPARIN 40 MG/0.4 ML SYRINGE SUB-Q (08:35)
[2020-03-05] MEDS: TAMSULOSIN HCL 0.4 MG CAPSULE PO (08:35)
[2020-03-05] MEDS: ESCITALOPRAM OXALATE 5 MG TABLET PO (08:35)
[2020-03-05] MEDS: INSULIN GLARGINE (*BKC) 100 UNITS/ML 30 UNITS SUB-Q (08:36)
[2020-03-05] MEDS: polyethylene glycoL 3350 17 GM POWD.PACK PO (08:36)
[2020-03-05] MEDS: FAMOTIDINE 20 MG TABLET PO ×2 (08:36→20:53)
[2020-03-05 11:41] LABS: Glucose Point of Care 130 (65-105)
[2020-03-05 14:00] VITALS: BP 101/64; PULSE 88; RESP 16; TEMP 36.1; O2SAT 99
--- NOTE | 2020-03-05 15:01 | PM.IMPN ---
Progress Note: A&P Assessment and Plan (1) Acute UTI: Code(s): N39.0 - Urinary tract infection, site not specified Status: Acute Assessment and Plan: Recently treated with Diflucan for funguria. Patient returns for nausea and vomiting and found to have a positive UA. The patient was started on ceftriaxone at that time. Patient has a chronic indwelling Meza catheter. Patient is complaining of abdominal pain as usual but continues to eat normally with normal BMs. We continued with his home dose of Ultram prn. Urine culture growing strep viridans and ESBL Ecoli sensitive to Ertapenem. Ertapenem started. Midline placed for IV abx at [place] but the senior living refused to accept the patient back. Ertapenem Day /. (2) Diabetes mellitus with hyperglycemia: Qualifiers: Diabetes mellitus alf insulin use: with terminal makeup operator use Diabetes mellitus type: type 2 Qualified Code(s): E11.65 - Type 2 diabetes mellitus with hyperglycemia; Z79.4 - [facility] (current) use of insulin Code(s): E11.65 - Type 2 diabetes mellitus with hyperglycemia Status: Acute Assessment and Plan: Glucose monitored closely. Glucose elevated at times but mostly well controlled. Glucose was 105 this morning. Glucose monitoring with Accu-Cheks covering with sliding scale insulin. Will continue with his home Lantus but cut dose back. Watch for lows. (3) Hyperlipidemia: Code(s): E78.5 - Hyperlipidemia, unspecified Status: Chronic Assessment and Plan: LFTs are within normal limits. Will continue with Lipitor. (4) Hypertension: Code(s): I10 - Essential (primary) hypertension Status: Chronic Assessment and Plan: BP monitored closely. BP soft at times. Continue to hold lisinopril. (5) BPH (benign prostatic hyperplasia): Code(s): N40.0 - Benign prostatic hyperplasia without lower urinary tract symptoms Status: Chronic Assessment and Plan: Stable. Will continue tamsulosin (6) Urinary retention: Code(s): R33.9 - Retention of urine, unspecified Status: Resolved Assessment and Plan: Stable. Patient has a chronic indwelling Meza catheter. Will continue Flomax. (7) Depression: Code(s): F32.9 - Major depressive disorder, single episode, unspecified Status: Chronic Assessment and Plan: Mood stable. Will continue with Lexapro Subjective Date/time seen: 03/05/20 15:01 Interval history: 49yo male with HTN, hx of CVA with left hemiplegia and chronic indwelling Meza admitted with his chronic abdominal pain, leukocytosis and UTI. Recently here with urine growing yeast and treated with Diflucan. Date of visit 03/05: No complaints today. Eating okay. No CP or SOB. Exam Narrative: Exam Narrative: AF 101/64 88 16 99% ra Gen - NARD lying almost flat in bed Chest - few rhonchi bibasilar, nml RR CV - RRR S1/S2 Abd -soft. ND/NT, +BS - Meza secured draining clear yellow urine Ext -left above the knee amputation. No pedal edema right lower extremity Neuro - Alert and appropriate Left hemiplegia Psych - nml mood and affect Objective Data Vital Signs Vital Signs: Vital Signs - 24 hr 03/04/20 20:20 03/04/20 20:32 03/05/20 05:53 Temperature 97.4 F L 97.5 F L Pulse Rate 94 94 92 Respiratory Rate 16 16 20 Blood Pressure 98/71 L 92/51 L Pulse Oximetry 98 98 97 Intake/Output Intake/Output: Intake & Output 03/02/20 03/03/20 03/04/20 03/05/20 23:59 23:59 23:59 23:59 Intake Total 1700 890 820 360 Output Total 1675 775 975 350 Balance 25 115 -155 10 Meds/Results Medications: Active Medications Generic Name Dose Route Start Last Admin Trade Name Freq PRN Reason Stop Dose Admin Atorvastatin Calcium 40 mg 02/28/20 21:00 03/04/20 20:34 Lipitor PO 40 mg HS HAY Administration Dextrose 12.5 gm 02/28/20 15:07 Dextrose 50% Syringe IV PUSH PRN ND
[2020-03-05 16:22] LABS: Glucose Point of Care 88 (65-105)
[2020-03-05 20:46] VITALS: BP 91/59; PULSE 92; RESP 16; TEMP 37.1; O2SAT 99
[2020-03-05] MEDS: ATORVASTATIN 40 MG TABLET PO (20:53)
[2020-03-05] MEDS: ERTAPENEM 1 GM/NS 50 ML 1 GM/50 ML BAG IVPB (20:53)
[2020-03-05] MEDS: QUEtiapine FUMARATE 100 MG TABLET PO (20:53)
[2020-03-05] MEDS: ONDANSETRON INJ 4 MG/2 ML VIAL IV PUSH (20:59)
[2020-03-05 22:47] LABS: Glucose Point of Care 116 (65-105)
[2020-03-06] MEDS: ONDANSETRON INJ 4 MG/2 ML VIAL IV PUSH ×3 (06:17→16:35)
[2020-03-06] MEDS: CENTRAL LINE FLUSH 20 ML IV PUSH (06:23)
[2020-03-06] MEDS: CENTRAL LINE FLUSH 10 ML IV PUSH ×3 (06:30→20:30)
[2020-03-06 06:32] LABS: Hematocrit 31.5 % (42.0-52.0); Hemoglobin 10.5 g/dL (14.0-18.0); Mean Corpuscular HGB Conc 33.3 g/dl (32-36); Mean Corpuscular Hemoglobin 30.5 pg (26-34); Mean Corpuscular Volume 91.6 fl (80-100); Mean Platelet Volume 10.1 fl (7.4-10.4); Platelet Count Result 326 k/mm3 (150-375); Red Blood Count 3.44 M/mm3 (4.6-6.20); Red Cell Distribution Width 13.2 % (11.5-14.5); White Blood Count 9.8 K/mm3 (4.5-10.0)
[2020-03-06 06:44] LABS: Blood Urea Nitrogen 11 mg/dL (9-20); Calcium 8.8 mg/dL (8.4-10.2); Carbon Dioxide 31 mmol/L (22-30); Chloride 98 mmol/L (98-107); Estimated CRCL calculation 147 ml/min; Estimated Glomerular Filt Rate > 60; Glucose 133 mg/dL (75-110); Potassium 3.9 mmol/L (3.4-5.0); Sodium 138 mmol/L (137-145)
[2020-03-06 07:43] VITALS: BP 99/71; PULSE 115; RESP 16; TEMP 36.1; O2SAT 98
[2020-03-06 07:48] LABS: Glucose Point of Care 151 (65-105)
[2020-03-06] MEDS: ESCITALOPRAM OXALATE 5 MG TABLET PO (08:14)
[2020-03-06] MEDS: FAMOTIDINE 20 MG TABLET PO ×2 (08:14→20:30)
[2020-03-06] MEDS: TAMSULOSIN HCL 0.4 MG CAPSULE PO (08:14)
[2020-03-06] MEDS: traMADol HCL 50 MG TABLET PO (08:15)
[2020-03-06] MEDS: ENOXAPARIN 40 MG/0.4 ML SYRINGE SUB-Q (08:16)
[2020-03-06] MEDS: INSULIN GLARGINE (*BKC) 100 UNITS/ML 26 UNITS SUB-Q (08:17)
--- NOTE | 2020-03-06 10:28 | PM.IMPN ---
Progress Note: A&P Assessment and Plan (1) Acute UTI: Code(s): N39.0 - Urinary tract infection, site not specified Status: Acute Assessment and Plan: Recently treated with Diflucan for funguria. Patient returns for nausea and vomiting and found to have a positive UA. The patient was started on ceftriaxone at that time. Patient has a chronic indwelling Meza catheter. Urine culture growing strep viridans and ESBL Ecoli sensitive to Ertapenem. Ertapenem started. Midline placed for IV abx at [place] but the snf refused to accept the patient back. Ertapenem Day 6/. Now with recurrent n/v for unclear reasons. Could be chronic. Will monitor for now but consider further evaluatin of symptoms persist. Elevate head of the bed. Start Tums. (2) Diabetes mellitus with hyperglycemia: Qualifiers: Diabetes mellitus type: type 2 Diabetes mellitus natural resources manager insulin use: with jail use Qualified Code(s): E11.65 - Type 2 diabetes mellitus with hyperglycemia; Z79.4 - patient intake representative (current) use of insulin Code(s): E11.65 - Type 2 diabetes mellitus with hyperglycemia Status: Acute Assessment and Plan: Glucose monitored closely. Glucose reviewd on 03/06/20. Glucose dropping to 88 yesterday. Lantus dose decreased yesterdayso willjust monitor at this time. Continue close glucose monitoring with Accu-Cheks covering with sliding scale insulin. Continue hypoglycemia protocol. (3) Hyperlipidemia: Code(s): E78.5 - Hyperlipidemia, unspecified Status: Chronic Assessment and Plan: LFTs within normal limits. Continue with Lipitor. (4) Hypertension: Code(s): I10 - Essential (primary) hypertension Status: Chronic Assessment and Plan: BP monitored closely. BP soft at times. Continue to hold lisinopril. (5) BPH (benign prostatic hyperplasia): Code(s): N40.0 - Benign prostatic hyperplasia without lower urinary tract symptoms Status: Chronic Assessment and Plan: Stable. Continue tamsulosin (6) Urinary retention: Code(s): R33.9 - Retention of urine, unspecified Status: Resolved Assessment and Plan: Stable. Patient has a chronic indwelling Meza catheter. Will continue Flomax. (7) Depression: Code(s): F32.9 - Major depressive disorder, single episode, unspecified Status: Chronic Assessment and Plan: Mood stable. Will continue with Lexapro Subjective Date/time seen: 03/06/20 10:28 Interval history: 49yo male with HTN, hx of CVA with left hemiplegia and chronic indwelling Meza admitted with his chronic abdominal pain, leukocytosis and UTI. Recently here with urine growing yeast and treated with Diflucan. Date of visit 03/06: Patient feels nauseous today. He then tells me the nausea is chronic. He has been dry heaving. He has heartburn. He also complains of abdominal pain but again this is chronic. He denies shortness of breath, cough, chest pain or palpitations. No diarrhea. Normal bowel movements. He was given Zofran earlier today cord with the nurse. Exam Narrative: Exam Narrative: AF 99/71 115 16 98% ra Gen - NARD lying almost flat in bed Chest - CTA bilaterally, nml RR CV - RRR S1/S2 Abd -soft. +guarding. +BS - Meza secured draining clear yellow urine Ext -left above the knee amputation. No pedal edema right lower extremity Neuro - Alert and appropriate Left hemiplegia Psych - nml mood and affect Objective Data Vital Signs Vital Signs: Vital Signs - 24 hr 03/05/20 14:00 03/05/20 20:46 03/06/20 07:43 Temperature 97.0 F L 98.7 F 97.0 F L Pulse Rate 88 92 115 H Respiratory Rate 16 16 16 Blood Pressure 101/64 91/59 L 99/71 L Pulse Oximetry 99 99 98 Intake/Output Intake/Output: Intake & Output 03/03/20 03/04/20 03/05/20 03/06/20 23:59 23:59 23:59 23:59 Intake Total 890 820 590 200 Output Total 641 287 0150 875 Balance 115 -155
[2020-03-06 11:35] LABS: Glucose Point of Care 198 (65-105)
[2020-03-06 14:00] VITALS: BP 131/61; PULSE 96; RESP 16; TEMP 36.2; O2SAT 100
[2020-03-06 16:31] LABS: Glucose Point of Care 187 (65-105)
[2020-03-06] MEDS: ERTAPENEM 1 GM/NS 50 ML 1 GM/50 ML BAG IVPB (17:04)
[2020-03-06] MEDS: ATORVASTATIN 40 MG TABLET PO (20:30)
[2020-03-06] MEDS: QUEtiapine FUMARATE 100 MG TABLET PO (20:30)
[2020-03-06] MEDS: CALCIUM CARBONATE (TUMS) 500 MG (200 MG ELEMENTAL) PO (20:31)
[2020-03-06 22:00] VITALS: BP 102/73; PULSE 119; RESP 16; TEMP 36.9; O2SAT 97
[2020-03-06 22:47] LABS: Glucose Point of Care 206 (65-105)
[2020-03-07 06:00] VITALS: BP 129/76; PULSE 109; RESP 16; TEMP 36.9; O2SAT 95
[2020-03-07] MEDS: CENTRAL LINE FLUSH 10 ML IV PUSH ×4 (06:31→21:31)
[2020-03-07 07:48] LABS: Glucose Point of Care 160 (65-105)
[2020-03-07 08:00] VITALS: RESP 16
[2020-03-07] MEDS: FAMOTIDINE 20 MG TABLET PO ×2 (08:35→21:31)
[2020-03-07] MEDS: ENOXAPARIN 40 MG/0.4 ML SYRINGE SUB-Q (08:35)
[2020-03-07] MEDS: ESCITALOPRAM OXALATE 5 MG TABLET PO (08:35)
[2020-03-07] MEDS: TAMSULOSIN HCL 0.4 MG CAPSULE PO (08:36)
[2020-03-07] MEDS: INSULIN GLARGINE (*BKC) 100 UNITS/ML 26 UNITS SUB-Q (08:36)
--- NOTE | 2020-03-07 09:50 | PM.IMPN ---
Progress Note: A&P Assessment and Plan (1) Fecal impaction: Code(s): K56.41 - Fecal impaction Status: Acute Assessment and Plan: Patient with abd pain and KUB showing fecal impaction. Patient refusing medication/treatment for this. He is willing to try one medication dose so will give him mineral oil. Explained to staff that he needs to be upright and with chin tuck when giving this medication. He is also having atypical CP that is consistent with his acid reflux. Continue Pepcid. Will give him TUms to see if symptoms improve. Further evaluation if sx persist. (2) Acute UTI: Code(s): N39.0 - Urinary tract infection, site not specified Status: Acute Assessment and Plan: Recently treated with Diflucan for funguria. Patient returns for nausea and vomiting and found to have a positive UA. The patient was started on ceftriaxone but changed due to UCx results. Patient has a chronic indwelling Meza catheter. Urine culture growing strep viridans and ESBL Ecoli sensitive to Ertapenem. Ertapenem started. Midline placed for IV abx at [place] but the halfway refused to accept the patient back. Ertapenem Day 03/02. (3) Diabetes mellitus with hyperglycemia: Qualifiers: Diabetes mellitus type: type 2 Diabetes mellitus ocean transportation intermediary insulin use: with longterm use Qualified Code(s): E11.65 - Type 2 diabetes mellitus with hyperglycemia; Z79.4 - termite treater helper (current) use of insulin Code(s): E11.65 - Type 2 diabetes mellitus with hyperglycemia Status: Acute Assessment and Plan: Glucose monitored closely. Glucose reviewd on 03/07/20. Glucose reasonable. Continue close glucose monitoring with Accu-Cheks covering with sliding scale insulin. Continue hypoglycemia protocol. (4) Hyperlipidemia: Qualifiers: Hyperlipidemia type: unspecified Qualified Code(s): E78.5 - Hyperlipidemia, unspecified Code(s): E78.5 - Hyperlipidemia, unspecified Status: Chronic Assessment and Plan: LFTs within normal limits. Continue with Lipitor. (5) Hypertension: Qualifiers: Hypertension type: essential hypertension Qualified Code(s): I10 - Essential (primary) hypertension Code(s): I10 - Essential (primary) hypertension Status: Chronic Assessment and Plan: BP reviewd on 03/07/20. BP well controlled. Continue to hold lisinopril. (6) BPH (benign prostatic hyperplasia): Qualifiers: Lower urinary tract symptom presence: symptoms present Lower urinary tract symptom detail: urinary obstruction Qualified Code(s): N40.1 - Benign prostatic hyperplasia with lower urinary tract symptoms; N13.8 - Other obstructive and reflux uropathy Code(s): N40.0 - Benign prostatic hyperplasia without lower urinary tract symptoms Status: Chronic Assessment and Plan: Stable. Continue tamsulosin (7) Urinary retention: Code(s): R33.9 - Retention of urine, unspecified Status: Resolved Assessment and Plan: Stable. Patient has a chronic indwelling Meza catheter. Will continue Flomax. (8) Depression: Qualifiers: Depression Type: major depressive disorder Major depression recurrence: recurrent Active/Remission status: in partial remission Qualified Code(s): F33.41 - Major depressive disorder, recurrent, in partial remission Code(s): F32.9 - Major depressive disorder, single episode, unspecified Status: Chronic Assessment and Plan: Mood stable. Will continue with Lexapro Subjective Date/time seen: 03/07/20 09:50 Interval history: 49yo male with HTN, hx of CVA with left hemiplegia and chronic indwelling Meza admitted with his chronic abdominal pain, leukocytosis and UTI. Recently here with urine growing yeast and treated with Diflucan. Date of visit 03/06: Patient with chest pain that he describes as 'heartburn'. He has had this in the past. Thi
[2020-03-07] MEDS: CALCIUM CARBONATE (TUMS) 500 MG (200 MG ELEMENTAL) PO ×2 (09:58→21:42)
[2020-03-07 11:33] LABS: Glucose Point of Care 193 (65-105)
[2020-03-07] MEDS: MINERAL OIL 30 ML UDC PO (11:40)
--- NOTE | 2020-03-07 11:48 | PC.NURSE ---
Pt refused soap suds enema. Mineral oil offered. Patient was positioned upright and chin tucked when swallowing. Pt tolerated well.
[2020-03-07 14:00] VITALS: BP 93/54; PULSE 62; RESP 16; TEMP 36.2; O2SAT 100
[2020-03-07] MEDS: ERTAPENEM 1 GM/NS 50 ML 1 GM/50 ML BAG IVPB ×2 (15:58→17:41)
[2020-03-07 16:36] LABS: Glucose Point of Care 254 (65-105)
[2020-03-07] MEDS: INSULIN ASPART (*BKC) 100 UNITS/ML SUB-Q (17:42)
[2020-03-07 20:40] VITALS: BP 98/83; PULSE 102; RESP 16; TEMP 36.3; O2SAT 99
[2020-03-07] MEDS: ATORVASTATIN 40 MG TABLET PO (21:30)
[2020-03-07] MEDS: QUEtiapine FUMARATE 100 MG TABLET PO (21:31)
[2020-03-07 22:14] LABS: Glucose Point of Care 204 (65-105)
[2020-03-08 06:00] VITALS: BP 99/62; PULSE 98; RESP 16; TEMP 36.3; O2SAT 97
[2020-03-08] MEDS: CENTRAL LINE FLUSH 10 ML IV PUSH ×4 (06:13→20:53)
[2020-03-08 07:58] LABS: Glucose Point of Care 144 (65-105)
[2020-03-08] MEDS: ENOXAPARIN 40 MG/0.4 ML SYRINGE SUB-Q (09:54)
[2020-03-08] MEDS: TAMSULOSIN HCL 0.4 MG CAPSULE PO (09:55)
[2020-03-08] MEDS: ESCITALOPRAM OXALATE 5 MG TABLET PO (09:55)
[2020-03-08] MEDS: polyethylene glycoL 3350 17 GM POWD.PACK PO ×2 (09:56→16:02)
[2020-03-08] MEDS: INSULIN GLARGINE (*BKC) 100 UNITS/ML 26 UNITS SUB-Q (09:58)
[2020-03-08] MEDS: FAMOTIDINE 20 MG TABLET PO ×2 (10:01→19:58)
[2020-03-08] MEDS: BISACODYL 5 MG TABLET EC PO (10:08)
--- NOTE | 2020-03-08 11:23 | PCNWS ---
Weekly nutritional screen. Patient is tolerating current diet with adequate intake. No weight loss reported. No nutritional needs at this time.
[2020-03-08 11:46] LABS: Glucose Point of Care 160 (65-105)
[2020-03-08 14:00] VITALS: BP 124/105; PULSE 97; RESP 18; TEMP 36.6; O2SAT 100
[2020-03-08] MEDS: BISACODYL 10 MG SUPPOSITORY RECTAL (15:21)
[2020-03-08 16:46] LABS: Glucose Point of Care 170 (65-105)
--- NOTE | 2020-03-08 17:10 | PM.IMPN ---
Progress Note: A&P Assessment and Plan (1) Fecal impaction: Code(s): K56.41 - Fecal impaction Status: Acute Assessment and Plan: Patient with abd pain and KUB showing fecal impaction. Patient refusing some treatment for this. He did take mineral oil yesterday without benefit. he refuses enemas and refuses to take another mineral oil dose. He refusing Miralax but agrees to take a dose instead of the mineral oil. Add dulcolax orally. RN was able to convinc patient to try dulcolax suppository. Okay for discharge once impaction resolved. (2) Acute UTI: Code(s): N39.0 - Urinary tract infection, site not specified Status: Acute Assessment and Plan: Recently treated with Diflucan for funguria. Patient returns for nausea and vomiting and found to have a positive UA. The patient was started on ceftriaxone but changed due to UCx results. Patient has a chronic indwelling Meza catheter. Urine culture growing strep viridans and ESBL Ecoli sensitive to Ertapenem. Ertapenem started. Midline placed for IV abx at [place] but the [facility] refused to accept the patient back. Ertapenem Day 8. (3) Diabetes mellitus with hyperglycemia: Qualifiers: Diabetes mellitus intermediate frame tender insulin use: with shelter use Diabetes mellitus type: type 2 Qualified Code(s): E11.65 - Type 2 diabetes mellitus with hyperglycemia; Z79.4 - long-term (current) use of insulin Code(s): E11.65 - Type 2 diabetes mellitus with hyperglycemia Status: Acute Assessment and Plan: Glucose monitored closely. Glucose reviewd on 03/08/20. Glucose elevated yesterday but better controlled today. Continue close glucose monitoring with Accu-Cheks covering with sliding scale insulin. Continue hypoglycemia protocol. (4) Hyperlipidemia: Qualifiers: Hyperlipidemia type: unspecified Qualified Code(s): E78.5 - Hyperlipidemia, unspecified Code(s): E78.5 - Hyperlipidemia, unspecified Status: Chronic Assessment and Plan: LFTs within normal limits. Continue with Lipitor. (5) Hypertension: Qualifiers: Hypertension type: essential hypertension Qualified Code(s): I10 - Essential (primary) hypertension Code(s): I10 - Essential (primary) hypertension Status: Chronic Assessment and Plan: BP reviewd on 03/08/20. BP well controlled for most recent value but suspect this was peroneus. Continue to hold lisinopril for now. (6) BPH (benign prostatic hyperplasia): Qualifiers: Lower urinary tract symptom detail: urinary obstruction Lower urinary tract symptom presence: symptoms present Qualified Code(s): N40.1 - Benign prostatic hyperplasia with lower urinary tract symptoms; N13.8 - Other obstructive and reflux uropathy Code(s): N40.0 - Benign prostatic hyperplasia without lower urinary tract symptoms Status: Chronic Assessment and Plan: Stable. Continue tamsulosin (7) Urinary retention: Code(s): R33.9 - Retention of urine, unspecified Status: Resolved Assessment and Plan: Stable. Patient has a chronic indwelling Meza catheter. Will continue Flomax. (8) Depression: Qualifiers: Active/Remission status: in partial remission Depression Type: major depressive disorder Major depression recurrence: recurrent Qualified Code(s): F33.41 - Major depressive disorder, recurrent, in partial remission Code(s): F32.9 - Major depressive disorder, single episode, unspecified Status: Chronic Assessment and Plan: Mood stable. Will continue with Lexapro Subjective Date/time seen: 03/08/20 17:10 Interval history: 49yo male with HTN, hx of CVA with left hemiplegia and chronic indwelling Meza admitted with his chronic abdominal pain, leukocytosis and UTI. Recently here with urine growing yeast and treated with Diflucan. Date of visit 03/08: Patient has small bowel
[2020-03-08] MEDS: ERTAPENEM 1 GM/NS 50 ML 1 GM/50 ML BAG IVPB (17:36)
[2020-03-08] MEDS: ATORVASTATIN 40 MG TABLET PO (19:58)
[2020-03-08] MEDS: QUEtiapine FUMARATE 100 MG TABLET PO (19:58)
[2020-03-08 20:00] VITALS: PULSE 97; RESP 18; O2SAT 100
[2020-03-08 20:46] VITALS: BP 98/52; PULSE 102; RESP 16; TEMP 36.4; O2SAT 97
[2020-03-08] MEDS: ONDANSETRON INJ 4 MG/2 ML VIAL IV PUSH (20:52)
[2020-03-08 21:52] LABS: Glucose Point of Care 162 (65-105)
[2020-03-09] MEDS: CALCIUM CARBONATE (TUMS) 500 MG (200 MG ELEMENTAL) PO ×2 (00:40→17:23)
[2020-03-09 06:00] VITALS: BP 105/61; PULSE 106; RESP 16; TEMP 36.6; O2SAT 95
[2020-03-09] MEDS: CENTRAL LINE FLUSH 10 ML IV PUSH ×4 (06:35→21:20)
[2020-03-09 08:07] LABS: Glucose Point of Care 140 (65-105)
[2020-03-09] MEDS: ENOXAPARIN 40 MG/0.4 ML SYRINGE SUB-Q (08:59)
[2020-03-09] MEDS: ONDANSETRON INJ 4 MG/2 ML VIAL IV PUSH (08:59)
[2020-03-09] MEDS: INSULIN GLARGINE (*BKC) 100 UNITS/ML 10 UNITS SUB-Q (10:42)
[2020-03-09 11:41] LABS: Glucose Point of Care 149 (65-105)
[2020-03-09 14:00] VITALS: BP 110/63; PULSE 100; RESP 18; TEMP 36.5; O2SAT 97
--- NOTE | 2020-03-09 16:29 | PM.IMPN ---
Progress Note: A&P Assessment and Plan (1) Fecal impaction: Code(s): K56.41 - Fecal impaction Status: Acute Assessment and Plan: Patient with abd pain and KUB 03/06 showing fecal impaction. Patient refusing some treatment for this. He did have recorded good BM no 03/08. he refuses enemas . He refusing Miralax but. Added dulcolax orally. RN was able to convinc patient to try dulcolax suppository. Okay for discharge since is had BM it did not eat well today and hopefully be able to be discharged 03/10 (2) Acute UTI: Code(s): N39.0 - Urinary tract infection, site not specified Status: Acute Assessment and Plan: Recently treated with Diflucan for funguria. Patient returns for nausea and vomiting and found to have a positive UA. The patient was started on ceftriaxone but changed due to UCx results. Patient has a chronic indwelling Meza catheter. Urine culture growing strep viridans and ESBL Ecoli sensitive to Ertapenem. . Midline placed for IV abx at [place] but the half-way refused to accept the patient back. Ertapenem Day 8. Finished course (3) Diabetes mellitus with hyperglycemia: Qualifiers: Diabetes mellitus type: type 2 Diabetes mellitus intermodal owner operator truck driver insulin use: with intermodal owner operator truck driver use Qualified Code(s): E11.65 - Type 2 diabetes mellitus with hyperglycemia; Z79.4 - penitentiary (current) use of insulin Code(s): E11.65 - Type 2 diabetes mellitus with hyperglycemia Status: Acute Assessment and Plan: Glucose monitored closely. Glucose reviewd on 03/09/20. With FBS only 149 so half his usual Lantus dose was given since he is not eating today. Continue close glucose monitoring with Accu-Cheks covering with sliding scale insulin. Continue hypoglycemia protocol. (4) Hyperlipidemia: Qualifiers: Hyperlipidemia type: unspecified Qualified Code(s): E78.5 - Hyperlipidemia, unspecified Code(s): E78.5 - Hyperlipidemia, unspecified Status: Chronic Assessment and Plan: LFTs within normal limits. Continue with Lipitor. (5) Hypertension: Qualifiers: Hypertension type: essential hypertension Qualified Code(s): I10 - Essential (primary) hypertension Code(s): I10 - Essential (primary) hypertension Status: Chronic Assessment and Plan: BP reviewd on 03/09/20. BP well controlled continue to hold CHRIS-inhibitor. (6) BPH (benign prostatic hyperplasia): Qualifiers: Lower urinary tract symptom presence: symptoms present Lower urinary tract symptom detail: urinary obstruction Qualified Code(s): N40.1 - Benign prostatic hyperplasia with lower urinary tract symptoms; N13.8 - Other obstructive and reflux uropathy Code(s): N40.0 - Benign prostatic hyperplasia without lower urinary tract symptoms Status: Chronic Assessment and Plan: Stable. Continue tamsulosin (7) Urinary retention: Code(s): R33.9 - Retention of urine, unspecified Status: Resolved Assessment and Plan: Stable. Patient has a chronic indwelling Meza catheter. Will continue Flomax. (8) Depression: Qualifiers: Depression Type: major depressive disorder Major depression recurrence: recurrent Active/Remission status: in partial remission Qualified Code(s): F33.41 - Major depressive disorder, recurrent, in partial remission Code(s): F32.9 - Major depressive disorder, single episode, unspecified Status: Chronic Assessment and Plan: Mood stable. Will continue with Lexapro Subjective Date/time seen: 03/09/20 16:29 Interval history: Date of visit 03/09. 49yo male with HTN, hx of CVA with left hemiplegia and chronic indwelling Meza admitted with his chronic abdominal pain, leukocytosis and UTI. Recently here with urine growing yeast and treated with Diflucan. Patient had good bowel movement 03/08. He did take the minimal oral 03/07 but has r
[2020-03-09 16:30] LABS: Glucose Point of Care 131 (65-105)
[2020-03-09] MEDS: polyethylene glycoL 3350 17 GM POWD.PACK PO (17:22)
[2020-03-09] MEDS: ERTAPENEM 1 GM/NS 50 ML 1 GM/50 ML BAG IVPB (17:22)
[2020-03-09] MEDS: traMADol HCL 50 MG TABLET PO (17:30)
[2020-03-09 21:05] VITALS: PULSE 97; RESP 16; O2SAT 99
[2020-03-09 21:17] VITALS: BP 115/50; PULSE 97; RESP 16; TEMP 36.9; O2SAT 99
[2020-03-09] MEDS: ATORVASTATIN 40 MG TABLET PO (21:19)
[2020-03-09] MEDS: QUEtiapine FUMARATE 100 MG TABLET PO (21:19)
[2020-03-09] MEDS: FAMOTIDINE 20 MG TABLET PO (21:19)
[2020-03-10 03:56] LABS: Glucose Point of Care 122 (65-105)
[2020-03-10] MEDS: CENTRAL LINE FLUSH 10 ML IV PUSH (05:45)
[2020-03-10] MEDS: CENTRAL LINE FLUSH 20 ML IV PUSH (05:45)
[2020-03-10 05:51] VITALS: BP 143/89; PULSE 94; RESP 16; TEMP 36.2; O2SAT 100
--- NOTE | 2020-03-10 05:57 | PC.NURSE ---
bm scant. brown
[2020-03-10 06:22] LABS: Blood Urea Nitrogen 24 mg/dL (9-20); Calcium 8.9 mg/dL (8.4-10.2); Carbon Dioxide 33 mmol/L (22-30); Chloride 99 mmol/L (98-107); Estimated CRCL calculation 113 ml/min; Estimated Glomerular Filt Rate > 60; Glucose 119 mg/dL (75-110); Potassium 4.1 mmol/L (3.4-5.0); Sodium 139 mmol/L (137-145)
[2020-03-10 07:45] LABS: Glucose Point of Care 115 (65-105)
[2020-03-10] MEDS: TAMSULOSIN HCL 0.4 MG CAPSULE PO (08:19)
[2020-03-10] MEDS: polyethylene glycoL 3350 17 GM POWD.PACK PO (08:19)
[2020-03-10] MEDS: BISACODYL 5 MG TABLET EC PO (08:19)
[2020-03-10] MEDS: ENOXAPARIN 40 MG/0.4 ML SYRINGE SUB-Q (08:19)
[2020-03-10] MEDS: FAMOTIDINE 20 MG TABLET PO (08:19)
[2020-03-10] MEDS: ESCITALOPRAM OXALATE 5 MG TABLET PO (08:19)
[2020-03-10] MEDS: INSULIN GLARGINE (*BKC) 100 UNITS/ML 26 UNITS SUB-Q (08:20)
[2020-03-10] MEDS: lisinopriL 10 MG TABLET PO (09:57)
--- NOTE | 2020-03-13 18:22 | PM.DS ---
DS: Admitting Diagnosis Admitting Diagnosis Admitting Diagnosis: Urinary tract infection, site not specified DS: Discharge Diagnosis Discharge Diagnosis (1) Fecal impaction: Code(s): K56.41 - Fecal impaction Status: Acute Assessment and Plan: Patient with abd pain which is chronic pain thought to be IBS but KUB 03/06 showing fecal impaction. Patient did receive some relief is discomfort with relief of the impaction and bowel movements.. Added dulcolax orally daily. RN was able to convinc patient to try dulcolax suppository. Continue MiraLax daily also if he will take (2) Acute UTI: Code(s): N39.0 - Urinary tract infection, site not specified Status: Acute Assessment and Plan: Recently treated with Diflucan for funguria. Patient returns for nausea and vomiting and found to have a positive UA. Patient has a chronic indwelling Meza catheter. Urine culture growing strep viridans and ESBL Ecoli sensitive to Ertapenem. . Midline placed for IV abx at [place] but the half-way refused to accept the patient back. Ertapenem Day 9. Finished course while inpatient and midline IV removed (3) Diabetes mellitus with hyperglycemia: Qualifiers: Diabetes mellitus type: type 2 Diabetes mellitus [facility] insulin use: with exterminator helper use Qualified Code(s): E11.65 - Type 2 diabetes mellitus with hyperglycemia; Z79.4 - detention (current) use of insulin Code(s): E11.65 - Type 2 diabetes mellitus with hyperglycemia Status: Acute Assessment and Plan: Glucose monitored closely. Glucose reviewd on 03/10/20. Resumed his usual Lantus 26 units HS (4) Hyperlipidemia: Qualifiers: Hyperlipidemia type: unspecified Qualified Code(s): E78.5 - Hyperlipidemia, unspecified Code(s): E78.5 - Hyperlipidemia, unspecified Status: Chronic Assessment and Plan: LFTs within normal limits. Continue with Lipitor. (5) Hypertension: Qualifiers: Hypertension type: essential hypertension Qualified Code(s): I10 - Essential (primary) hypertension Code(s): I10 - Essential (primary) hypertension Status: Chronic Assessment and Plan: BP reviewd on 03/10/20. BP well controlled while here but was starting to rise so on discharge resumed his CHRIS-inhibitor especially with his diabetes but only at 10 mg daily (6) BPH (benign prostatic hyperplasia): Qualifiers: Lower urinary tract symptom presence: symptoms present Lower urinary tract symptom detail: urinary obstruction Qualified Code(s): N40.1 - Benign prostatic hyperplasia with lower urinary tract symptoms; N13.8 - Other obstructive and reflux uropathy Code(s): N40.0 - Benign prostatic hyperplasia without lower urinary tract symptoms Status: Chronic Assessment and Plan: Stable. Continue tamsulosin (7) Urinary retention: Code(s): R33.9 - Retention of urine, unspecified Status: Resolved Assessment and Plan: Stable. Patient has a chronic indwelling Meza catheter. Will continue Flomax. (8) Depression: Qualifiers: Depression Type: major depressive disorder Major depression recurrence: recurrent Active/Remission status: in partial remission Qualified Code(s): F33.41 - Major depressive disorder, recurrent, in partial remission Code(s): F32.9 - Major depressive disorder, single episode, unspecified Status: Chronic Assessment and Plan: Mood stable. Will continue with Lexapro DS: Summary Hospital Course Hospital Course: 49-year-old hypertensive type 2 diabetic status post but knee amputation and CVA admitted with UTI and nausea. Found to have ESBL E coli was sensitive to ertapenem. Completed 9 day course of IV antibiotics here and was transferred back to half-way for further rehab. Blood pressure toward the low side here and his CHRIS-inhibitor was decreased this 10 mg daily. Sander
== END 2020-03-10 11:44 | DRG 466 ==
LOC: ANHED 08:13 → ANH3MED 10:44
PROVIDERS: Internal Medicine; Nurse Practitioner; Admitting Provider Family Medicine; Emergency Provider Emergency Medicine; PCP Internal Medicine; Visit Provider Internal Medicine
DX: T83.511A Infection and inflammatory reaction due to indwelling urethral catheter, initial encounter (principal); N39.0 Urinary tract infection, site not specified; B96.20 Unspecified Escherichia coli [E. coli] as the cause of diseases classified elsewhere; B95.4 Other streptococcus as the cause of diseases classified elsewhere; Z11.59 Encounter for screening for other viral diseases; I69.354 Hemiplegia and hemiparesis following cerebral infarction affecting left non-dominant side; K56.41 Fecal impaction; E11.65 Type 2 diabetes mellitus with hyperglycemia; E87.5 Hyperkalemia; I10 Essential (primary) hypertension; N40.1 Benign prostatic hyperplasia with lower urinary tract symptoms; N13.8 Other obstructive and reflux uropathy; R33.9 Retention of urine, unspecified; K58.9 Irritable bowel syndrome, unspecified; F32.9 Major depressive disorder, single episode, unspecified; E78.5 Hyperlipidemia, unspecified; I69.398 Other sequelae of cerebral infarction; R56.9 Unspecified convulsions; Z89.612 Acquired absence of left leg above knee; I25.2 Old myocardial infarction; Z90.49 Acquired absence of other specified parts of digestive tract; Z87.891 Personal history of nicotine dependence; Z79.4 Long term (current) use of insulin
CPT/HCPCS: 36415; 36569; 71045; 74018; 76700; 80048; 80053; 81001; 83605; 83690; 83735; 84443; 84484; 85025; 85027; 85610; 85730; 86140; 87077; 87086; 87088; 87186; 87635; 93005; 96361; 96365; 96366; 96375; 96376; 99285; A9270; C1751; C9113; C9803; G0378; G0379; J0131; J0696; J1335; J1650; J1815; J2405; J3010; J7030; U0003

== ENCOUNTER 2020-05-01 06:53 | Inpatient (IN) | payer OTHER, SELFPAY ==
[2020-05-01] VITALS (12 sets, daily range): BP systolic 70–92; BP diastolic 44–63; PULSE 93–117; RESP 15–20; TEMP 36.1–36.4; O2SAT 91–99; BMI 20.2
--- NOTE | ~2020-05-01 | CT_ITS ---
EXAMINATION: CT cervical spine wo con DATE: 05/01/2020 08:43 INDICATION: Neck pain TECHNIQUE: Computed tomography (CT) of the cervical spine was performed without intravenous contrast. The dose-length product (DLP) was 474.84 mGy-cm. Automated exposure control and iterative reconstruc tion technique were employed. COMPARISON: None FINDINGS: There is no fracture. There are 2 mm of anterolisthesis of C5 on C6. There is moderate loss of intervertebral disc space height at C6-7. The vertebral body heights are maintained. The odontoid is intact. Degenerative osteophytes project from the anterior endplates of multiple vertebral bodies . Posterior disc bulge causes moderate central canal stenosis at C3-4. There is mild central canal st enosis elsewhere in the cervical spine. The visualized lung apices are clear. IMPRESSION: 1. Moderate cervical spondylosis without acute abnormality. Reviewed, dictated and finalized at location A.
--- NOTE | ~2020-05-01 | US_ITS ---
EXAMINATION: US renal BI DATE: 05/01/2020 11:14 INDICATION: Acute renal failure TECHNIQUE: Multiple grayscale and Doppler ultrasound images of the kidneys were obtained. COMPARISON: 02/29/2020 FINDINGS: The right kidney measures 12.3 x 5.9 x 5.3 cm. The left kidney measures 11.4 x 5.2 x 5.4 cm . The kidneys demonstrate normal parenchymal echogenicity. There is no hydronephrosis. The bladder de monstrates mild wall thickening but is incompletely distended. IMPRESSION: 1. Normal kidneys without hydronephrosis. 2. Mild bladder wall thickening which may be due to incomplete distention, chronic outlet obstruction , or possibly cystitis. Reviewed, dictated and finalized at location A. IMPRESSION: 1. Normal kidneys without hydronephrosis. 2. Mild bladder wall thickening which may be due to incomplete distention, rack washer sharath outlet obstruction, or possibly cystitis.
--- NOTE | ~2020-05-01 | CT_ITS ---
EXAMINATION: CT brain wo con INDICATION: Head injury COMPARISON: None TECHNIQUE: Standard unenhanced head CT. The dose-length product (DLP) was 605.33 mGy-cm. The mA was a djusted according to patient size. Iterative reconstruction technique was employed. FINDINGS: There are surgical changes and encephalomalacia involving the entire right frontal lobe and much of the right temporal lobe. A chronic appearing extra-axial fluid collection is seen measuring CSF attenuation. There is ex vacuo enlargement of the right lateral ventricle. No acute intracranial hemorrhage is identified. No mass lesion is present. The basal cisterns are patent. The orbits are no rmal. Intracranial calcified cerebral atherosclerosis is noted. Surgical defects are noted in the rig ht skull. The paranasal sinuses, mastoids and calvarium are normal. IMPRESSION: 1. Large area of encephalomalacia involving the right frontal and temporal lobes without acute intrac ranial abnormality. Reviewed, dictated and finalized at location A. IMPRESSION: 1. Large area of encephalomalacia involving the right frontal and temporal lobe s without acute intracranial abnormality.
--- NOTE | ~2020-05-01 | XR_ITS ---
EXAMINATION: XR chest 1V portable INDICATION: Chest pain TECHNIQUE: Portable AP chest at 0737 hours COMPARISON: 03/08/2020 FINDINGS: The lungs are free of acute opacities. There is no pleural effusion or pneumothorax. The ca rdiomediastinal silhouette is normal. IMPRESSION: 1. No acute cardiopulmonary abnormality. Reviewed, dictated and finalized at location A.
--- NOTE | 2020-05-01 07:11 | ED.FALL ---
HPI - Fall General Chief Complaint: Fall Stated Complaint: FALL FROM BED Time Seen by Provider: 05/01/20 07:10 Source: patient and EMS Mode of arrival: EMS Limitations: no limitations History of Present Illness HPI Narrative: Patient is a 50-year-old male h/o DM, Stroke, ID, left AKA who presents from [facility], [place] for evaluation after fall from his bed. Patient reportedly was found prone on the floor next to his bed this morning by nursing staff. There was concern for head trauma, patient was reporting neck pain, thus EMS was called and patient was transported to this facility. Patient continues to report neck pain to me. He is oriented to person, place, not to time. He is able to identify the president. PT states he is DNR/DNI. When asked how the patient fell out of bed he states he was messing around. Pt does not elaborate further when questioned. Per EMS, vital signs were stable in route. Patient denies any headache, chest pain, shortness of breath, abdominal pain or hip pain. Related Data Home Medications Medication Instructions Recorded Confirmed acetaminophen [Tylenol Extra 500 mg PO Q8H PRN 02/22/20 05/01/20 Strength] atorvastatin 40 mg PO HS 02/22/20 05/01/20 escitalopram oxalate [Lexapro] 5 mg PO DAILY 02/22/20 02/28/20 ondansetron HCl [Zofran] 4 mg PO Q6H PRN 02/22/20 05/01/20 pantoprazole 40 mg PO DAILY 02/22/20 05/01/20 polyethylene glycol 3350 17 g PO DAILY 02/22/20 05/01/20 quetiapine 100 mg PO HS 02/22/20 05/01/20 escitalopram oxalate [Lexapro] 10 mg PO DAILY 05/01/20 05/01/20 prochlorperazine maleate 05/01/20 Allergies Allergy/AdvReac Type Severity Reaction Status Date / Time ketorolac Allergy Intermediate red and Verified 05/01/20 08:15 itches iohexol Allergy Unknown Verified 05/01/20 08:15 [From contrast - CT, X-RAY] Contrast Media Allergy Unknown Unknown Uncoded 05/01/20 08:15 Review of Systems Review of Systems: Narrative: CONSTITUTIONAL: Denies fever EYES: Denies visual changes CARDIOVASCULAR: Denies chest pain RESPIRATORY: Denies dyspnea. GASTROINTESTINAL: Denies abdominal pain MUSCULOSKELETAL: Reports neck pain NEUROLOGIC: Denies headache [facility] Past Medical History Medical History BPH (benign prostatic hyperplasia) CVA (cerebral vascular accident) CVA age 48 (2018) resulting in left hemiparesis. His CVA was complicated by cerebral edema recur requiring craniotomy, respiratory failure with tracheostomy and resultant dysphagia with g-tube placement and subsequent removal. Depression History of left above knee amputation Hyperlipidemia Hypertension Insulin dependent diabetes mellitus With a hemoglobin A1c was 7.30 May 2019 Myocardial infarction Poorly documented Pneumonia Seizure disorder as sequela of cerebrovascular accident Surgical History Surgical History Gastrojejunostomy tube status G-tube placed 2017 with subsequent removal in 2018 History of appendectomy History of tracheostomy Hx of cholecystectomy Status post craniectomy 2018 due to cerebral edema from CVA. Family History Family History Sibling Acute myocardial infarction from acute heart attack according to the patient his brother was only 25 years old when he had a massive ID Father Acute myocardial infarction Undetermined manner of , suicide suspected Mother Contact with adder as cause of accidental injury in a motor vehicle accident Social History Social History Social History: The patient states that he is engaged but he lives at [facility]. He has 2 children he is single never been before. He tells me is a DNR however his paperwork says something else. The patient has had a a stroke and had says inappropriate
--- NOTE | 2020-05-01 07:19 | ECG_ITS ---
Measurements Intervals [place] Rate: 96 P: 50 HI: 145 QRS: -15 QRSD: 106 T: 54 QT: 378 QTc: 480 Interpretive Statements SINUS RHYTHM LOW QRS VOLTAGE IN PRECORDIAL LEADS BORDERLINE R WAVE PROGRESSION, ANTERIOR LEADS CONSIDER INFERIOR INFARCT, AGE INDETERMINATE BASELINE ARTIFACT- I, II, III, AVR, AVL,A VF, V1-V6 ABNORMAL ECG Electronically Signed On 05-01-2020 9:25:33 CDT by Morris Borrero D.O.
[2020-05-01] MEDS: SODIUM CHLORIDE 0.9% IV 1,000 ML 999 ML IV CONT ×2 (07:35→10:48)
[2020-05-01] MEDS: ONDANSETRON INJ 4 MG/2 ML VIAL IV PUSH (07:35)
[2020-05-01 07:41] LABS: Alveolar/Arterial O2 Gradient 78.1 mmHg; Base Excess ABG -15.7 mEq/l (+/-2.0); Carboxyhemoglobin 2.4 % THb (0-2.0); Fractional Inspired Oxygen 21 %; HCO3 ABG 8.3 mEq/l (22.0-26.0); Methemoglobin ABG 0.2 %THb (0-1.5); Oxygen Content ABG 3.6 %vol (16.0-22.0); Oxygen Saturation ABG 90.7 % (95.0-100.0); Oxyhemoglobin 84.1 % THb (90.0-100.0); PO2 ABG 55.7 mmHg (80.0-100.0); PO2 FiO2 Ratio Arterial Blood 2.65 %; Reduced Hemoglobin 13.3 %THb (0-5.0); pH ABG 7.412 (7.350-7.450)
[2020-05-01 07:45] LABS: PCO2 ABG 13.3 mmHg (35.0-45.0); Total Hemoglobin 2.9 g/dL (12.0-18.0)
[2020-05-01 07:46] LABS: Device ROOM AIR; Site Drawn RIGHT BRACHIAL
[2020-05-01] MEDS: SODIUM CHLORIDE 0.9% IV 500 ML 999 ML IV CONT (07:55)
--- NOTE | 2020-05-01 07:57 | PC.NURSE ---
Unable to draw labs on pt. Phlebotomy called to come draw.
--- NOTE | 2020-05-01 08:30 | PC.NURSE ---
Lab here to draw pts blood.
--- NOTE | 2020-05-01 08:45 | PC.NURSE ---
Lab unsuccessful with blood draw. Informed charge nurse of this.
--- NOTE | 2020-05-01 08:50 | PC.NURSE ---
2nd labeling machine operator here to attempt to draw labs on pt.
--- NOTE | 2020-05-01 09:04 | PC.NURSE ---
2nd dye lab technician unsuccessful. Informed charge nurse of this.
[2020-05-01 09:49] LABS: Lactic Acid Reflex 1.6 mmol/L (0.7-2.1)
[2020-05-01 09:52] LABS: Alanine Aminotransferase 14 U/L (4-50); Albumin Level 3.3 g/dL (3.5-5.1); Alkaline Phosphatase 108 U/L (38-126); Anion Gap 12 mmol/L (8-16); Aspartate Amino Transferase 29 U/L (17-59); Bilirubin,Total 1.6 mg/dL (0.2-1.3); Blood Urea Nitrogen 91 mg/dL (9-20); CRP 1.5 mg/dL (<1.0); Calcium 8.3 mg/dL (8.4-10.2); Carbon Dioxide 28 mmol/L (22-30); Chloride 89 mmol/L (98-107); Estimated Glomerular Filt Rate 16; Glucose 173 mg/dL (75-110); Potassium 3.8 mmol/L (3.4-5.0); Sodium 129 mmol/L (137-145)
[2020-05-01 10:08] LABS: NT Pro B Type Natriuretic Pept 368 PG/ML (5-100); Troponin I 0.037 ng/mL (0.000-0.034)
[2020-05-01 10:14] LABS: Add Urine Microscopic? YES; Appearance Urine Turbid (Clear); Bacteria Urine 3+ /hpf; Bilirubin Urine 1+ (Negative); Blood Urine 1+ (Negative); Color Urine Yellow (Yellow); Glucose Urine UA Negative (Negative); Ketones Urine Trace mg/dL (Negative); Leukocyte Esterase Ur 3+ LEU/UL (Negative); Mucus Urine Rare /lpf; Nitrate Urine Negative (Negative); Protein Urine 3+ mg/dL (Negative); Specific Grav Ur 1.014 (1.001-1.035); Squamous Epithelial Cell Urine Few /hpf (Few); WBC Urine >75 /hpf
--- NOTE | 2020-05-01 10:15 | PC.NURSE ---
While in pts room Dr. Marcelino discussed with pt putting in a central line due to pts pressure being low. Pt stated that NO he did not want a central line. Dr. Marcelino informed pt that this was needed to maintain life. Pt stated that he understood this and did not want the central line. Pt is A&Ox4. Pt was then asked if he wanted life saving measures preformed it his heart were to stop. Pt stated that no he would not. Both myself and Dr. Marcelino heard pt state this.
[2020-05-01 10:24] LABS: Basophils Percent Auto 0.2 % (0.2-1.2); Eosinophils Absolute Auto 0.1 K/mm3 (0-0.3); Eosinophils Percent Auto 0.4 % (0-4.4); Hematocrit 27.5 % (42.0-52.0); Hemoglobin 9.2 g/dL (14.0-18.0); Immature Granulocyte Absolute 0.06 K/mm3 (0.00-0.031); Immature Granulocyte Percent A 0.5 % (0-0.5); Lymphocytes Absolute Auto 1.16 K/mm3 (0.9-3.2); Lymphocytes Percent Auto 9.2 % (18.3-44.2); Mean Corpuscular HGB Conc 33.5 g/dl (32-36); Mean Corpuscular Hemoglobin 29.3 pg (26-34); Mean Corpuscular Volume 87.6 fl (80-100); Mean Platelet Volume 11.8 fl (7.4-10.4); Monocytes Absolute Auto 0.6 K/mm3 (0.1-0.6); Monocytes Percent Auto 4.6 % (2.6-8.5); Neutrophils Absolute Auto 10.7 K/mm3 (1.3-6.7); Neutrophils Percent Auto 85.1 % (45.5-73.1); Platelet Count Result 221 k/mm3 (150-375); Red Blood Count 3.14 M/mm3 (4.6-6.20); Red Cell Distribution Width 14.4 % (11.5-14.5); White Blood Count 12.6 K/mm3 (4.5-10.0)
[2020-05-01 10:35] LABS: INR 1.1; Partial Thromboplastin Time 24.4 SECONDS (22.3-36.8)
[2020-05-01] MEDS: SODIUM CHLORIDE 0.9% IV 1,000 ML 150 ML IV CONT ×2 (11:56→18:09)
--- NOTE | 2020-05-01 12:08 | ADMGEN ---
This patient, Kaushik Vogel, was admitted to IMU Room 231-01 [id number] on 05/01/2021. Patient/family oriented to hospital policies and general routines including ID bracelet, bed and alarms, visiting hours, pain management, procedures, bathroom and other care routines, personal items, smoking policy, room service/diet, and visiting hours. Valuables list has been completed. Information on how to activate the Rapid Response Team has been discussed. Patient/Family are encouraged to report perceived risks to care and to ask questions if they do not understand what they are told or what they should do.
--- NOTE | 2020-05-01 13:15 | PM.IMHP ---
H&P: HPI History of Present Illness Date/Time: 05/01/20 13:15 Chief complaint: Fall from bed. Narrative: Kaushik Vogel is a 50-year-old male with history of CVA with left hemiplegia, vascular dementia, insulin-dependent diabetes, hypertension, and benign prostatic hyperplasia who presented to the emergency department earlier today via EMS from [facility] for evaluation after he fell from his bed. He is not the greatest historian and seems to be a bit more confused today than when I have seen him in the past. As such, a majority of this medical history is obtained via a review of his electronic medical records as well as discussions with his girlfriend, Elzbieta. Staff members and [facility] found the patient prone on the floor after he apparently slipped out of bed this morning. The patient told me that he was goofing around and accidentally rolled out of the bed. He was complaining of some low neck pain at the time, but he has had negative imaging and has no complaints such at this time. In any regard, he was found to be hypotensive with an acute kidney injury and a urinalysis suggestive of UTI. Despite receiving several liters of IV fluids in the emergency department he remained hypotensive in the 70s to 80 systolic however he adamantly refused a central line and states that he wishes to be a DNR: Just keep what you are doing and we will hope for the best. With further questioning, he tells me he has had nausea and vomiting for several days, but does not further qualify. He denies diarrhea and dysuria. He has not noticed a decrease in urine output, but from what I have been told he has issues with BPH and in the past his intermittently needed catheters due to urinary retention. Bladder scan done just prior to my arrival to the room showed at least 247 cc of urine in the bladder, but he continues to refuse Meza catheter placement and tells me that he urinated twice today already. Again, he has no complaints at this time and specifically denies fever, chills, sweats, chest pain, shortness of breath, sinus congestion, rhinorrhea, otalgia, odynophagia, cough, abdominal pain, diarrhea, and dysuria. Review of Systems Review of Systems: Narrative: 12 systems were reviewed with pertinent positives and negatives as per HPI. Except as documented, all other systems were reviewed and are negative. [facility] Past Medical History Medical History (Updated 05/01/20 @ 16:54 by Andreia Steiner PA-C) Benign mass of left adrenal gland MRI in May 2019 showed a stable left adrenal mass for, likely lipid poor adenoma. Benign prostatic hyperplasia Cerebrovascular accident (~2018) CVA age 48 resulting in left hemiplegia. His CVA was complicated by cerebral edema recur requiring craniotomy, respiratory failure with tracheostomy and resultant dysphagia with g-tube placement and subsequent removal. Depression Hyperlipidemia Hypertension Insulin dependent diabetes mellitus Hemoglobin A1c was 7.4% in May 2019. Myocardial infarction Poorly documented. Seizure disorder as sequela of cerebrovascular accident Urinary tract infection due to extended-spectrum beta lactamase (ESBL) producing Escherichia coli Vascular dementia Surgical History Surgical History (Updated 05/01/20 @ 13:31 by Andreia Steiner PA-C) Gastrojejunostomy tube status G-tube placed 2017 with subsequent removal in 2018. History of appendectomy History of cholecystectomy History of left above knee amputation History of tracheostomy Status post craniectomy 2018 due to cerebral edema from CVA. Family History Family History Sibling Acute myocardial infarction from acute heart attack according to the patient his brother was only 25 years old when he had a massive [place] Father Acute myocardial infarction Undetermined manner of , suicide suspected Mother Contact with adder as cause of a
[2020-05-01 14:56] LABS: Hemoglobin A1C 6.8 % (<5.7)
[2020-05-01 14:59] LABS: Anion Gap 8 mmol/L (8-16); Blood Urea Nitrogen 81 mg/dL (9-20); Calcium 7.9 mg/dL (8.4-10.2); Carbon Dioxide 27 mmol/L (22-30); Chloride 94 mmol/L (98-107); Creatine Kinase 894 U/L (55-170); Estimated CRCL calculation 24 ml/min; Estimated Glomerular Filt Rate 19; Glucose 127 mg/dL (75-110); Magnesium 1.8 mg/dL (1.6-2.3); Phosphorus 4.2 mg/dL (2.5-4.5); Potassium 3.2 mmol/L (3.4-5.0); Sodium 129 mmol/L (137-145)
[2020-05-01 15:10] LABS: Troponin I 0.029 ng/mL (0.000-0.034)
[2020-05-01 17:58] LABS: Glucose Point of Care 102 (65-105)
[2020-05-01 19:53] LABS: Sodium Urine Random 34 meq/L
[2020-05-01 19:56] LABS: Creatinine Urine 114.7 mg/dL
[2020-05-01 20:30] LABS: Glucose Point of Care 190 (65-105)
[2020-05-01] MEDS: HEPARIN SODIUM 5,000 UNITS/ML VIAL 5000 UNITS SUB-Q (20:32)
[2020-05-01 20:50] LABS: Magnesium 1.7 mg/dL (1.6-2.3)
[2020-05-01 20:50] LABS: Anion Gap 11 mmol/L (8-16); Blood Urea Nitrogen 76 mg/dL (9-20); Calcium 7.9 mg/dL (8.4-10.2); Carbon Dioxide 24 mmol/L (22-30); Chloride 97 mmol/L (98-107); Creatine Kinase 1192 U/L (55-170); Estimated CRCL calculation 30 ml/min; Estimated Glomerular Filt Rate 25; Glucose 189 mg/dL (75-110); Potassium 3.2 mmol/L (3.4-5.0); Sodium 132 mmol/L (137-145)
[2020-05-02] VITALS (7 sets, daily range): BP systolic 94–111; BP diastolic 47–73; PULSE 82–102; RESP 18–20; TEMP 35.9–36.2; O2SAT 96–98
[2020-05-02] MEDS: SODIUM CHLORIDE 0.9% IV 1,000 ML 150 ML IV CONT ×2 (01:08→09:55)
[2020-05-02 03:29] LABS: Basophils Percent Auto 0.3 % (0.2-1.2); Eosinophils Absolute Auto 0.2 K/mm3 (0-0.3); Eosinophils Percent Auto 1.8 % (0-4.4); Hemoglobin 9.6 g/dL (14.0-18.0); Immature Granulocyte Absolute 0.04 K/mm3 (0.00-0.031); Immature Granulocyte Percent A 0.4 % (0-0.5); Lymphocytes Absolute Auto 2.11 K/mm3 (0.9-3.2); Lymphocytes Percent Auto 18.5 % (18.3-44.2); Mean Corpuscular HGB Conc 33.1 g/dl (32-36); Mean Corpuscular Hemoglobin 29.3 pg (26-34); Mean Corpuscular Volume 88.4 fl (80-100); Mean Platelet Volume 11.5 fl (7.4-10.4); Monocytes Percent Auto 8.8 % (2.6-8.5); Neutrophils Percent Auto 70.2 % (45.5-73.1); Platelet Count Result 206 k/mm3 (150-375); Red Blood Count 3.28 M/mm3 (4.6-6.20); Red Cell Distribution Width 14.4 % (11.5-14.5); White Blood Count 11.4 K/mm3 (4.5-10.0)
[2020-05-02 03:41] LABS: Alanine Aminotransferase 15 U/L (4-50); Alkaline Phosphatase 89 U/L (38-126); Anion Gap 8 mmol/L (8-16); Aspartate Amino Transferase 52 U/L (17-59); Blood Urea Nitrogen 75 mg/dL (9-20); Calcium 8.1 mg/dL (8.4-10.2); Carbon Dioxide 25 mmol/L (22-30); Chloride 98 mmol/L (98-107); Estimated CRCL calculation 43 ml/min; Estimated Glomerular Filt Rate 38; Glucose 138 mg/dL (75-110); Magnesium 1.8 mg/dL (1.6-2.3); Potassium 3.4 mmol/L (3.4-5.0); Sodium 131 mmol/L (137-145)
[2020-05-02 03:44] LABS: Creatine Kinase 1092 U/L (55-170)
[2020-05-02 08:33] LABS: Glucose Point of Care 126 (65-105)
--- NOTE | 2020-05-02 10:45 | PM.DS ---
DS: Admitting Diagnosis Admitting Diagnosis Admitting Diagnosis: Fall from bed. DS: Discharge Diagnosis Discharge Diagnosis (1) Septic shock: Code(s): A41.9 - Sepsis, unspecified organism; R65.21 - Severe sepsis with septic shock Status: Acute Assessment and Plan: His profound dehydration could certainly be responsible for his hypotension, acute kidney injury and mild leukocytosis yet his blood pressures have not responded to aggressive IV fluid rehydration, thus he meets criteria for septic shock with an abnormal urinalysis. His lactic acid level is within normal limits. Blood in urine cultures have been obtained and are pending. Patient continues to refuse central line and was informed of the risks of not treating his low blood pressures, including to which he responded: we will hope for the best. (2) Acute renal failure: Qualifiers: Acute renal failure type: unspecified Qualified Code(s): N17.9 - Acute kidney failure, unspecified Code(s): N17.9 - Acute kidney failure, unspecified Status: Acute Assessment and Plan: Likely multifactorial in etiology to include profound dehydration and sepsis in the setting of CHRIS inhibitor use. He does have a history of urinary retention however bladder scan only shows 247 cc of urine in the bladder and renal ultrasound is without hydronephrosis. Continue judicious IV fluid rehydration and see if he allows a condom catheter to be placed for accurate I/O. Avoid nephrotoxic agents and monitor renal function closely. (3) Urinary tract infection: Code(s): N39.0 - Urinary tract infection, site not specified Status: Acute Assessment and Plan: He was started on cefepime in the emergency department however previous urine cultures have grown ESBL E coli resistant to such and thus will change to imipenem, pending urine culture. (4) Fall from bed: Code(s): W06.XXXA - Fall from bed, initial encounter Status: Acute Assessment and Plan: Patient reports that he was goofing off and slid out of bed, and he provides no further details. He was found in the prone position complaining of lower neck pain, with negative imaging. Initiate fall precautions. (5) Hyponatremia: Code(s): E87.1 - Hypo-osmolality and hyponatremia Status: Acute Assessment and Plan: Secondary to dehydration. Monitor sodium closely while hydrating. (6) Elevated troponin: Code(s): R79.89 - Other specified abnormal findings of blood chemistry Status: Acute Assessment and Plan: He is complaining of no chest pain whatsoever, and likely these are elevated in the setting of sepsis and renal failure. No acute ST changes noted on EKG, but there is pretty significant baseline artifact. Continue to trend troponins to peak with possible further workup depending on the trend. (7) Insulin dependent diabetes mellitus: Status: Chronic Assessment and Plan: Continue basal insulin and check hemoglobin A1c. Initiate sliding scale insulin, Accu-Cheks, and hypoglycemic protocol. (8) Vascular dementia: Code(s): F01.50 - Vascular dementia without behavioral disturbance Status: Acute Assessment and Plan: He seems to be a bit more confused now than at baseline, likely metabolic encephalopathy due to acute kidney injury. DS: Summary Hospital Course Reason for hospitalization: Chief complaint: Fall from bed. Narrative: Kaushik Vogel is a 5
--- NOTE | 2020-05-02 12:26 | PC.NURSE ---
Patient is refusing almost all medications and care at this time. Will only allow pain medication and Iv antibiotics. Refusing to have blood glucose obtained, as well as all other labs.Patient to discharge on hospice today.
[2020-05-05 04:39] LABS: Osmolality, Urine 449 mOsm/kg (50-1200)
== END 2020-05-02 12:55 | disposition hospice, home (50) | DRG 720 ==
LOC: ANHED 10:23 → ANHIMU 11:08
PROVIDERS: Physician Assistant; Admitting Provider Family Medicine; Emergency Provider Emergency Medicine; PCP Internal Medicine; Visit Provider Family Medicine
DX: A41.9 Sepsis, unspecified organism (principal); R65.21 Severe sepsis with septic shock; G93.41 Metabolic encephalopathy; N17.9 Acute kidney failure, unspecified; N39.0 Urinary tract infection, site not specified; E86.0 Dehydration; E87.1 Hypo-osmolality and hyponatremia; E11.9 Type 2 diabetes mellitus without complications; I69.354 Hemiplegia and hemiparesis following cerebral infarction affecting left non-dominant side; F01.50 Vascular dementia, unspecified severity, without behavioral disturbance, psychotic disturbance, mood disturbance, and anxiety; I69.398 Other sequelae of cerebral infarction; G40.909 Epilepsy, unspecified, not intractable, without status epilepticus; Z89.612 Acquired absence of left leg above knee; Z66 Do not resuscitate; M54.2 Cervicalgia; W06.XXXA Fall from bed, initial encounter; R79.89 Other specified abnormal findings of blood chemistry; E78.5 Hyperlipidemia, unspecified; N40.0 Benign prostatic hyperplasia without lower urinary tract symptoms; E27.9 Disorder of adrenal gland, unspecified; I25.2 Old myocardial infarction; Z79.4 Long term (current) use of insulin; Z79.899 Other long term (current) drug therapy; Z87.891 Personal history of nicotine dependence
CPT/HCPCS: 36415; 36600; 70450; 71045; 72125; 76775; 80048; 80053; 81001; 82375; 82550; 82570; 82805; 83036; 83050; 83605; 83735; 83880; 83930; 83935; 84100; 84300; 84484; 85025; 85610; 85730; 86140; 87040; 87086; 87088; 87147; 87186; 93005; 96361; 96365; 96375; 99291; A9270; J0692; J0743; J1644; J2405; J3370; J7030; J7040